=== PATIENT | male | born 1955 | race Caucasian/White ===

== ENCOUNTER 2016-06-10 10:44 | Emergency (ER) | payer MEDICARE, BC ==
--- NOTE | 2016-06-10 11:49 | EDM.PDOC ---
ED HPI GI/ABDOMINAL - General Chief Complaint: Abdominal Pain Stated Complaint: ABDOMINAL PAIN Time Seen by Provider: 06/10/16 11:42 Source: Reports: Patient, Family History Limitations: Reports: No limitations - History of Present Illness INITIAL COMMENTS - FREE TEXT/NARRATIVE: pt arrived with pain in the upper abdoman. He states this started about 10 thirty last nite. He has not vomited. He had a bm in last few hours. Timing/Duration: Reports: Hour(s): Location: RUQ Associated Symptoms: Reports: back pain - Related Data Allergies/ADRs: Allergies Allergy/AdvReac Type Severity Reaction Status Date / Time Cephalosporins Allergy Itching Verified 07/17/15 20:02 Penicillins Allergy Dizziness Verified 07/17/15 20:02 Sulfa (Sulfonamide Allergy Itching Verified 07/17/15 20:02 Antibiotics) vancomycin Allergy Facial Verified 07/17/15 20:02 Swelling Home Meds: Home Meds Calcium Polycarbophil [Fibercon] 1 tab PO QAM 03/04/13 [History] Carvedilol 3.125 mg PO BID 03/04/13 [History] Cranberry Conc/Ascorbic Acid [Cranberry 12,600 mg Softgel] 1 tab PO QAM [History] Furosemide 40 mg PO QAM 03/04/13 [History] Losartan Potassium 25 mg PO QPM 03/04/13 [History] Multivitamin with Minerals [Multiple Vitamin] 1 tab PO QAM 03/04/13 [History] Simvastatin 40 mg PO BEDTIME 03/04/13 [History] Vit D3/Folic Acid/B2/B6/B12 [Folgard Tablet] 1 each PO QAM 03/04/13 [History] Warfarin [Coumadin] 2.5 mg PO ASDIRECTED 03/04/13 [History] Warfarin [Coumadin] 3.75 mg PO ASDIRECTED 03/04/13 [History] metFORMIN [Glucophage] 1,000 mg PO BID 03/04/13 [History] Fluticasone Propionate [Flonase] 1 spray NS BID 04/07/13 [History] Insulin Aspart [NovoLOG] 12 - 15 unit SQ QID 01/11/15 [History] Insulin Detemir [Levemir] 30 unit SQ BID 01/11/15 [History] diphenhydrAMINE [Benadryl] 50 mg PO QID PRN 01/11/15 [History] Gabapentin [Neurontin] 600 mg PO BID 02/10/15 [History] traZODone 200 mg PO BEDTIME 06/27/15 [History] Clopidogrel [Plavix] 75 mg PO DAILY 08/10/15 [History] Potassium 99 mg PO DAILY 06/10/16 [History] Melatonin 6 mg PO BEDTIME 06/11/16 [History] Past Medical History HEENT History: Reports: Sinusitis Cardiovascular History: Reports: Bypass, Heart valve replacement, High cholesterol, Hypertension, [place] Gastrointestinal History: Reports: Cholelithiasis Genitourinary History: Reports: Renal calculus Endocrine/Metabolic History: Reports: Diabetes, type II Other Dermatologic History: infected bug bites - Past Surgical History Cardiovascular Surgical History: Reports: Coronary artery bypass, Valve replacement Respiratory Surgical History: Reports: Lung Resection, Thoracotomy GI Surgical History: Reports: Appendectomy Musculoskeletal Surgical History: Reports: Shoulder surgery Social & Family History - Tobacco Use Smoking Status *Q: Never Smoker Second Hand Smoke Exposure: No - Caffeine Use Caffeine Use: Reports: Coffee - Alcohol Use Days Per Week of Alcohol Use: 0 - Recreational Drug Use Recreational Drug Use: No ED ROS GENERAL - Review of Systems Review Of Systems: See Below Constitutional: Reports: no symptoms HEENT: Reports: No symptoms Respiratory: Reports: no symptoms Cardiovascular: Reports: No symptoms Endocrine: Reports: no symptoms GI/Abdominal: Reports: Abdominal pain, Nausea Musculoskeletal: Reports: no symptoms Skin: Reports: no symptoms Neurological: Reports: no symptoms Psychiatric: Reports: No symptoms ED EXAM, GI/ABD - Physical Exam Exam: See Below Text/Narrative:: pt has had upper abdomanal pain starting about ten thirty last nite. He continues to be uncomfortable and is rating his pain at a 7. Exam Limited By: No limitations General Appearance: alert, mild distress Ears: normal TMs Nose: normal inspection Throat/Mouth: Normal inspection Head: atraumatic Neck: normal inspection Respiratory/Chest: no respiratory distress GI/Abdominal: other (pt is tender in the rt upper and epigastric area. ) (Male) Exam: Deferred Rectal (Males) Exam: Deferred Back Exam: normal inspection Extremities: normal inspection Neurological: alert, oriented, normal cognition Psychiatric: normal affect Course - Vital Signs Last Recorded V/S: Last Vital Signs Temp 36.6 C 03/08/17 11:15 Pulse 90 06/10/16 16:22 Resp 16 06/10/16 16:22 BP 153/85 H 06/10/16 16:22 Pulse Ox 87 L 06/10/16 16:22 - Orders/Labs/Meds Labs: Laboratory Tests 06/10/16 06/10/16 06/10/16 Range/Units 11:28 11:28 11:28 WBC 12.3 H (4.5-11.0) K/uL RBC 5.70 (4.30-5.90) M/uL Hgb 16.0 H (12.0-15.0) g/dL Hct 48.8 (40.0-54.0) % MCV 86 (80-98) fL MCH 28 (27-31) pg MCHC 33 (32-36) % Plt Count 186 (150-400) K/uL Neut % (Auto) 83 H (36-66) % Lymph % (Auto) 10 L (24-44) % [place] % (Auto) 8 H (2-6) % Eos % (Auto) 0 L (2-4) % Baso % (Auto) 0 (0-1) % PT (9.5-12.0) sec INR (0.80-1.20) Sodium 140 (140-148) mmol/L Potassium 4.9 (3.6-5.2) mmol/L Chloride 98 L (100-108) mmol/L Carbon Dioxide 34 H (21-32) mmol/L Anion Gap 12.9 (5.0-14.0) mmol/L BUN 20 H (7-18) mg/dL Creatinine 1.1 (0.8-1.3) mg/dL Est Cr Clr Drug Dosing 65.10 mL/min Estimated GFR (MDRD) > 60 (>60) Glucose 147 H (74-106) mg/dL Calcium 9.5 (8.5-10.1) mg/dL Total Bilirubin 1.1 H D (0.2-1.0) mg/dL AST 21 (15-37) U/L ALT 19 (12-78) U/L Alkaline Phosphatase 52 (46-116) U/L C-Reactive Protein (0.0-0.3) mg/dL Total Protein 8.5 H (6.4-8.2) g/dL Albumin 4.5 (3.4-5.0) g/dL Globulin 4.0 H (2.3-3.5) g/dL Albumin/Globulin Ratio 1.1 L (1.2-2.2) Lipase 64 L (73-393) U/L Urine Color Urine Appearance Urine pH (4.5-8.0) Ur Specific [place] (1.008-1.030) Urine Protein (NEGATIVE) mg/dL Urine Glucose (UA) (NEGATIVE) mg/dL Urine Ketones (NEGATIVE) mg/dL Urine Occult Blood (NEGATIVE) Urine Nitrite (NEGAITVE) Urine Bilirubin (NEGATIVE) Urine Urobilinogen (NORMAL) mg/dL Ur Leukocyte Esterase (NEGATIVE) Urine RBC (0-5) Urine WBC (0-5) Ur Epithelial Cells Amorphous Sediment Urine Bacteria Urine Mucus 06/10/16 06/10/16 06/10/16 Range/Units 11:28 11:28 11:33 WBC (4.5-11.0) K/uL RBC (4.30-5.90) M/uL Hgb (12.0-15.0) g/dL Hct (40.0-54.0) % MCV (80-98) fL MCH (27-31) pg MCHC (32-36) % Plt Count (150-400) K/uL Neut % (Auto) (36-66) % Lymph % (Auto) (24-44) % [place] % (Auto) (2-6) % Eos % (Auto) (2-4) % Baso % (Auto) (0-1) % PT 36.5 H (9.5-12.0) sec INR 3.32 H (0.80-1.20) Sodium (140-148) mmol/L Potassium (3.6-5.2) mmol/L Chloride (100-108) mmol/L Carbon Dioxide (21-32) mmol/L Anion Gap (5.0-14.0) mmol/L BUN (7-18) mg/dL Creatinine (0.8-1.3) mg/dL Est Cr Clr Drug Dosing mL/min Estimated GFR (MDRD) (>60) Glucose (74-106) mg/dL Calcium (8.5-10.1) mg/dL Total Bilirubin (0.2-1.0) mg/dL AST (15-37) U/L ALT (12-78) U/L Alkaline Phosphatase (46-116) U/L C-Reactive Protein 0.61 H (0.0-0.3) mg/dL Total Protein (6.4-8.2) g/dL Albumin (3.4-5.0) g/dL Globulin (2.3-3.5) g/dL Albumin/Globulin Ratio (1.2-2.2) Lipase (73-393) U/L Urine Color Yellow Urine Appearance Slightly cloudy Urine pH 5.0 (4.5-8.0) Ur Specific [place] 1.020 (1.008-1.030) Urine Protein Negative (NEGATIVE) mg/dL Urine Glucose (UA) Normal (NEGATIVE) mg/dL Urine Ketones Negative (NEGATIVE) mg/dL Urine Occult Blood Trace (NEGATIVE) Urine Nitrite Negative (NEGAITVE) Urine Bilirubin Small (NEGATIVE) Urine Urobilinogen 4 (NORMAL) mg/dL Ur Leukocyte Esterase Negative (NEGATIVE) Urine RBC 0-5 (0-5) Urine WBC Not seen (0-5) Ur Epithelial Cells Rare Amorphous Sediment Moderate Urine Bacteria Rare Urine Mucus Moderate Meds: Medications Discontinued Medications Generic Name Dose Route Start Last Admin Trade Name Freq PRN Reason Stop Dose Admin Sodium Chloride 1,000 mls @ 999 mls/hr 06/10/16 12:15 06/10/16 13:28 Normal Saline IV 999 mls/hr ASDIRECTED [facility] Administration Sodium Chloride 85 mls @ 3.5 mls/sec 06/10/16 13:15 06/10/16 13:49 Normal Saline IV 3.5 mls/sec ASDIRECTED [facility] Administration Iopamidol 150 ml 06/10/16 13:08 06/10/16 13:49 Isovue-300 (61%) IV 06/11/16 13:09 150 ml . DIRECTED PRN Administration RADIOLOGY EXAM Ketorolac Tromethamine 30 mg 06/10/16 15:16 06/10/16 15:20 Toradol IVPUSH 06/10/16 15:17 30 mg ONETIME ONE Administration Magnesium Citrate 296 ml 06/10/16 14:10 06/10/16 15:05 Citrate Of Magnesia PO 06/10/16 14:11 296 ml ONETIME ONE Administration Ondansetron HCl 4 mg 06/10/16 12:05 06/10/16 13:27 Zofran IVPUSH 06/10/16 12:06 4 mg ONETIME ONE Administration Sodium Chloride 10 ml 06/10/16 13:08 06/10/16 13:47 Saline Flush FLUSH 10 ml ONETIME PRN Administration per radiology protocol - Re-Assessments/Exams Free Text/Narrative Re-Assessment/Exam: 06/10/16 14:11 pt had a cat scan which shows constipation but no other issues. His lab work is normal 06/10/16 16:54 Pt had a tap water enemea. He had a US of his Gb which showed a thickened gb wall some sludge. He will have a hiada scan and then an appt with Dr Multani in consult. Departure - Departure Time of Disposition: 16:55 Disposition: Home, Self-Care 01 Condition: fair Clinical Impression: Constipation, Abdominal pain Instructions: Constipation, Adult, [id number], Abdominal Pain, Adult, Easy-to -Read Referrals: Nilay Patel Sr, MD [Primary Care Provider] - Forms: ED Department Discharge Care Plan Goals: rtc for a Hiada scan,push fluids, Increase fibercon to bid and eat prunes daily mid day, Appt with Dr Multani after the Hiada scn.
[2016-06-10] MEDS ORDERED: Ondansetron 4 MG/2 ML SDV IVPUSH ONE (12:05)
[2016-06-10] MEDS ORDERED: Sodium Chloride 0.9% 1,000 ML IV SCH (12:15)
[2016-06-10] MEDS ORDERED: Iopamidol 612 MG/ML 150 ML Bottle IV PRN (13:08)
[2016-06-10] MEDS ORDERED: Sodium Chloride 0.9% 10 ML Syringe FLUSH PRN (13:08)
--- NOTE | 2016-06-10 13:24 | CR ---
Acute abdomen series Comparison: October 2012. Findings: The heart and vascular structures are stable. There is chronic scarring in the left lung b ase. Chronic bilateral pleural thickening peripherally. There are no acute infiltrates. There is a large amount of stool throughout the colon. There are no pathologic air-fluid levels. The re is no large or small bowel distention. Impression: 1. Large amount of colonic stool. Correlate for possible constipation. 2. Chronic changes of the lungs.
[2016-06-10] MEDS ORDERED: Magnesium Citrate Solution 296 ML Bottle PO ONE (14:10)
--- NOTE | 2016-06-10 14:11 | CT ---
Abdomen pelvis CT. History: Upper abdominal pain. Technique: IV contrast was administered followed by axial imaging from the lung bases extending thro ugh the abdomen and pelvis. Coronal images were reconstructed. Total DLP: 1238. Comparison: June 2015. Findings: Limited evaluation of the lower lung guaman demonstrates chronic pleural thickening. There is chronic basilar fibrosis as well as pleural calcifications. The liver is unremarkable. There are multiple small stones within the gallbladder. There has been de velopment of gallbladder wall thickening as well as induration of the adjacent fat consistent with i nflammation. There is mild pericholecystic fluid. There appears to be a stone in the neck of the gal lbladder. There is no biliary ductal dilatation. The pancreas is unremarkable. The spleen is normal in size. The kidneys demonstrate symmetric excretion of contrast. There is no large or small bowel d istention. There is no wall thickening or evidence for inflammation. There are scattered colonic div erticula. There is no free air. Impression: 1. Cholelithiasis. Gallbladder wall thickening with mild pericholecystic fluid and induration of the fat. The findings are consistent with acute cholecystitis. Ultrasound could provide additional info rmation. 2. The remaining portions of the exam are unchanged.
[2016-06-10] MEDS ORDERED: Ketorolac 30 MG/ML SDV IVPUSH ONE (15:16)
[2016-06-10 16:29] VITALS: BP 153/85
--- NOTE | 2016-06-11 10:39 | US ---
Gallbladder ultrasound Correlation is made with a CT exam obtained earlier same day. Findings: Gallstones seen on the prior CT examinations are not visualized under ultrasound. A small gallbladder wall polyp is demonstrated. There is gallbladder wall thickening. The wall measures 6 mm . There is a small amount of pericholecystic fluid. The patient denies pain with palpation over the gallbladder. Impression: 1. Limited study demonstrating mild gallbladder wall thickening and pericholecystic fluid. Stones se en on CT were not demonstrated under ultrasound. The exam is equivocal for cholecystitis.
== END 2016-06-10 17:34 | disposition home or self-care (01) ==
LOC: JP.ED 10:44
DX: K59.00 Constipation, unspecified (principal); E78.00 Pure hypercholesterolemia, unspecified; I10 Essential (primary) hypertension; I25.2 Old myocardial infarction; E11.9 Type 2 diabetes mellitus without complications; Z79.4 Long term (current) use of insulin; Z79.01 Long term (current) use of anticoagulants; Z79.899 Other long term (current) drug therapy; Z95.1 Presence of aortocoronary bypass graft; Z90.49 Acquired absence of other specified parts of digestive tract; Z88.0 Allergy status to penicillin; Z88.1 Allergy status to other antibiotic agents; Z88.2 Allergy status to sulfonamides
CPT/HCPCS: 36415; 74022; 74177; 76705; 80053; 81001; 82272; 83690; 85025; 85610; 86140; 96361; 96374; 96375; 99284; A9270; J1885; J2405; J7030; J7040; J7050

== ENCOUNTER 2016-06-11 13:10 | Inpatient (IN) | payer MEDICARE, BC ==
[2016-06-11] MEDS ORDERED: Phytonadione 10 MG in Sodium Chloride 0.9% 50 ML IV ONE (14:45)
[2016-06-11] MEDS: Dextrose 5%-Lactated Ringers 1,000 ML IV SCH (14:52)
[2016-06-11] MEDS ORDERED: diphenhydrAMINE 25 MG Cap PO PRN (16:01)
[2016-06-11] MEDS ORDERED: Non-Formulary Medication 1 Each (Fluticasone Propionate [Flovent] 2 PUFF) IH PRN (16:01)
[2016-06-11] MEDS ORDERED: Acetaminophen 325 MG Tab PO PRN (16:06)
[2016-06-11] MEDS ORDERED: Naloxone 0.4 MG/ML SDV IV PRN (16:21)
--- NOTE | 2016-06-11 16:21 | PCM.HP ---
H&P History of Present Illness - General Date of Service: 06/11/16 Source of Information: Patient History Limitations: Reports: No limitations - History of Present Illness Initial Comments - Free Text/Narative: Sudden onset of right upper quadrant abdominal pain that radiates throughout his entire abdomen. Has had this before so states he was sure it was his gallbladder. He had similar abdominal pain several months ago. Pain is associated with bloating, nausea and constipation. Last BM was last night in ED after an enema - he states. Eldon had a positive HIDA Scan and was admitted to [facility]. Duration of Symptoms: Reports: Day(s): (2) Location: Reports: abdomen (right upper quadrant ) Quality: Reports: Ache, Pressure, Same as previous episode Severity: mild Improves with: Reports: None Worsens with: Reports: Eating Associated Symptoms: Reports: fever/chills (last night of 100.9 but no fever today.), loss of appetite Other HPI/Comments: Nausea and constipation as stated above. - Related Data Allergies/Adverse Reactions: Allergies Allergy/AdvReac Type Severity Reaction Status Date / Time Cephalosporins Allergy Itching Verified 07/17/15 20:02 Penicillins Allergy Dizziness Verified 07/17/15 20:02 Sulfa (Sulfonamide Allergy Itching Verified 07/17/15 20:02 Antibiotics) vancomycin Allergy Facial Verified 07/17/15 20:02 Swelling Home Medications: Home Meds Calcium Polycarbophil [Fibercon] 1 tab PO QAM 03/04/13 [History] Carvedilol 3.125 mg PO BID 03/04/13 [History] Cranberry Conc/Ascorbic Acid [Cranberry 12,600 mg Softgel] 1 tab PO QAM [History] Fluticasone Propionate [Flovent] 2 puff IH ASDIRECTED PRN 03/04/13 [History] Furosemide 40 mg PO QAM 03/04/13 [History] Losartan Potassium 25 mg PO QPM 03/04/13 [History] Multivitamin with Minerals [Multiple Vitamin] 1 tab PO QAM 03/04/13 [History] Simvastatin 40 mg PO BEDTIME 03/04/13 [History] Vit D3/Folic Acid/B2/B6/B12 [Folgard Tablet] 1 each PO QAM 03/04/13 [History] Warfarin [Coumadin] 2.5 mg PO ASDIRECTED 03/04/13 [History] Warfarin [Coumadin] 3.75 mg PO ASDIRECTED 03/04/13 [History] metFORMIN [Glucophage] 1,000 mg PO BID 03/04/13 [History] Fluticasone Propionate [Flonase] 1 spray NS BID 04/07/13 [History] Insulin Aspart [NovoLOG] 12 - 15 unit SQ QID 01/11/15 [History] Insulin Detemir [Levemir] 30 unit SQ BID 01/11/15 [History] diphenhydrAMINE [Benadryl] 50 mg PO QID PRN 01/11/15 [History] Gabapentin [Neurontin] 600 mg PO BID 02/10/15 [History] traZODone 200 mg PO BEDTIME 06/27/15 [History] Clopidogrel [Plavix] 75 mg PO DAILY 08/10/15 [History] Potassium 99 mg PO DAILY 06/10/16 [History] Melatonin 6 mg PO BEDTIME 06/11/16 [History] Past Medical History HEENT History: Reports: Sinusitis Cardiovascular History: Reports: Bypass, Heart valve replacement, High cholesterol, Hypertension, [place] Gastrointestinal History: Reports: Cholelithiasis Genitourinary History: Reports: Renal calculus Endocrine/Metabolic History: Reports: Diabetes, type II Other Dermatologic History: infected bug bites - Past Surgical History Cardiovascular Surgical History: Reports: Coronary artery bypass, Valve replacement Respiratory Surgical History: Reports: Lung Resection, Thoracotomy GI Surgical History: Reports: Appendectomy Musculoskeletal Surgical History: Reports: Shoulder surgery Social & Family History - Tobacco Use Smoking Status *Q: Never Smoker Second Hand Smoke Exposure: No - Caffeine Use Caffeine Use: Reports: Coffee - Alcohol Use Days Per Week of Alcohol Use: 0 - Recreational Drug Use Recreational Drug Use: No H&P Review of Systems - Review of Systems: Review Of Systems: See Below General: Reports: fatigue, decreased appetite HEENT: Reports: no symptoms Pulmonary: Reports: no symptoms Cardiovascular: Reports: no symptoms Gastrointestinal: Reports: Abdominal pain (as stated in CC) Genitourinary: Reports: no symptoms Musculoskeletal: Reports: no symptoms Skin: Reports: no symptoms Psychiatric: Reports: no symptoms Neurological: Reports: no symptoms Hematologic/Lymphatic: Reports: no symptoms Immunologic: Reports: no symptoms Exam - Exam Exam: See Below - Vital Signs Vital Signs: Last Vital Signs Temp 99.2 F 06/11/16 13:32 Pulse 80 06/11/16 13:32 Resp 17 06/11/16 13:32 BP 111/72 06/11/16 13:32 Pulse Ox 93 L 06/11/16 13:32 Weight: 133 lb 3.2 oz - Exam Quality Assessment: DVT prophylaxis General: alert, oriented, cooperative, mild distress HEENT: PERRLA Neck: supple, trachea midline, full range of motion Lungs: Clear to auscultation, Normal respiratory effort Cardiovascular: regular rate, regular rhythm Abdomen: distention, guarding, tenderness (right upper quadrant) (Male) Exam: Deferred Rectal (Males) Exam: Deferred Back Exam: normal inspection, full range of motion Extremities: normal inspection, edema (minimal peripheral edema right > left) Skin: warm, dry, intact Neurological: cranial nerves intact, reflexes equal bilateral, normal speech Neuro Extensive - Mental Status: alert, oriented x3, normal mood/affect, normal cognition, memory intact Neuro Extensive - Motor, Sensory, Reflexes: CN II-XII intact, normal gait Psychiatric: alert, normal affect, normal mood *Q Meaningful Use (ADM) - VTE *Q VTE Criteria *Q: - Stroke *Q Stroke Criteria *Q: - AMI *Q AMI Criteria *Q: Problem List Initiated/Reviewed/Updated: Yes Orders Last 24hrs: Active Orders 24 hr Category Date Time Status Accu Check [Blood Glucose Check, Bedside] [] Care 06/11/16 16:00 Active QIDACANDBED Communication Order [] ROUTINE Care 06/11/16 15:58 Ordered Incentive Breathing [RT Incentive Spirometry] [] Care 06/11/16 15:56 Ordered ASDIRECTED Intake and Output [] ASDIRECTED Care 06/11/16 16:01 Ordered Verify Patient Consent Obtain [] ASDIRECTED Care 06/11/16 16:14 Ordered Full Liquid Diet [DIET] Diet 06/11/16 Dinner Ordered NPO After Midnight [Nothing per Oral After Midnight Diet 06/11/16 Dinner Ordered Diet] [DIET] CBC W/O DIFF,HEMOGRAM [HEME] Timed Lab 06/12/16 04:00 Ordered COMPREHENSIVE METABOLIC PN,CMP [CHEM] Timed Lab 06/12/16 04:00 Ordered INR,PT,PROTHROMBIN TIME [COAG] Routine Lab 06/11/16 21:15 Ordered MAGNESIUM [CHEM] Timed Lab 06/12/16 04:00 Ordered PHOSPHORUS [CHEM] Timed Lab 06/12/16 04:00 Ordered PRO B-TYPE NATRIUR PEPT,BNPPRO [CHEM] Timed Lab 06/12/16 04:00 Ordered Acetaminophen [Tylenol] Med 06/11/16 16:06 Ordered 650 mg PO Q4H PRN Carvedilol [Coreg] Med 06/11/16 21:00 Ordered 3.125 mg PO BID Dextrose 5%-Lactated Ringers 1,000 ml Med 06/11/16 14:30 Active IV ASDIRECTED Fluticasone Propionate [Flonase] Med 06/11/16 21:00 Ordered 1 spray NASBOTH BID Fluticasone Propionate [Flovent] Med 06/11/16 16:01 Ordered 2 puff IH ASDIRECTED PRN Furosemide [Lasix] Med 06/12/16 09:00 Ordered 40 mg PO QAM Gabapentin [Neurontin] Med 06/11/16 21:00 Ordered 600 mg PO BID Insulin Aspart [NovoLOG] Med 06/11/16 22:00 Ordered 12 - 15 unit SUBCUT QID Insulin Detemir [Levemir] Med 06/11/16 21:00 Ordered 30 unit SUBCUT BID Losartan Potassium [Losartan Potassium] Med 06/11/16 17:00 Ordered 25 mg PO QPM Melatonin Med 06/11/16 21:00 Ordered 6 mg PO BEDTIME Meropenem [Merrem] 500 mg Med 06/11/16 16:00 Ordered Sodium Chloride 0.9% [Normal Saline] 50 ml IV Q6H Pantoprazole [Protonix IV] Med 06/11/16 16:00 Ordered 40 mg IVPUSH Q24H Potassium [Potassium] Med 06/12/16 09:00 Ordered 99 mg PO DAILY Simvastatin [Simvastatin] Med 06/11/16 21:00 Ordered 40 mg PO BEDTIME diphenhydrAMINE [Benadryl] Med 06/11/16 16:01 Ordered 50 mg PO QID PRN metFORMIN [Glucophage] Med 06/11/16 21:00 Ordered 1,000 mg PO BID traZODone [traZODone] Med 06/11/16 21:00 Ordered 200 mg PO BEDTIME SCD [Sequential Compression Device] [OM.PC] Routine Oth 06/11/16 15:55 Ordered Medication Orders Acetaminophen (Tylenol) 650 mg PO Q4H PRN PRN Reason: Pain Carvedilol (Coreg) 3.125 mg PO BID [facility] Diphenhydramine HCl (Benadryl) 50 mg PO QID PRN PRN Reason: Itching Fluticasone Propionate (Flonase) gm NASBOTH BID [facility] Furosemide (Lasix) 40 mg PO QAM [facility] Gabapentin (Neurontin) 600 mg PO BID [facility] Dextrose/Lactated Ringer's (Dextrose 5%-Lactated Ringers) 1,000 mls @ 100 mls/ hr IV ASDIRECTED [facility] Last Admin: 06/11/16 14:52 Dose: 100 mls/hr Meropenem 500 mg/ Sodium (Chloride) 50 mls @ 100 mls/hr IV Q6H [facility] Insulin Aspart (Novolog) 12 - 15 unit SUBCUT QID [facility] Insulin Detemir (Levemir) 30 unit SUBCUT BID [facility] Losartan Potassium (Cozaar) 25 mg PO QPM [facility] Melatonin (Melatonin) 6 mg PO BEDTIME [facility] Metformin HCl (Glucophage) 1,000 mg PO BIDMEALS [facility] Non-Formulary Medication (Fluticasone Propionate [Flovent]) 2 puff IH ASDIRECTED PRN PRN Reason: Shortness of Breath Non-Formulary Medication (Potassium [Potassium]) 99 mg PO DAILY [facility] Non-Formulary Medication (Trazodone [Trazodone]) 200 mg PO BEDTIME [facility] Pantoprazole Sodium (Protonix Iv) 40 mg IVPUSH Q24H [facility] Simvastatin (Zocor) 40 mg PO BEDTIME [facility] Assessment/Plan Comment:: Biliary Dyskinisia Acute Cholecystitis Plan: Admit as Inpatient - 2 nights and 3 days Scheduled Laparoscopic Cholecystectomy possible Laparotomy - General Anesthesia - Benja Multani MD - Wednesday, [id number] NPO after MN See Copy of Orders in EMR Lilian Kerr
[2016-06-11] MEDS: Meperidine 300 MG/30 ML PCA Vial IV PRN (17:11)
[2016-06-11] MEDS: Pantoprazole 40 MG Vial IVPUSH SCH (17:14)
[2016-06-11] MEDS: Meropenem 500 MG in Sodium Chloride 0.9% 50 ML IV SCH ×2 (17:21→23:38)
[2016-06-11] MEDS: metFORMIN 500 MG Tab PO SCH (17:22)
[2016-06-11] MEDS: Losartan 50 MG Tab PO SCH (17:27)
[2016-06-11] MEDS: Insulin Aspart 100 Units/ML 3 ML Pen SUBCUT SCH ×2 (17:58→21:09)
[2016-06-11] MEDS: Fluticasone Propionate Nasal Spray 16 GM Bottle NASBOTH SCH (21:00)
[2016-06-11] MEDS: Carvedilol 3.125 MG Tab PO SCH (21:00)
[2016-06-11] MEDS: Melatonin 3 MG Tab PO SCH (21:01)
[2016-06-11] MEDS: traZODone 50 MG Tab PO SCH (21:01)
[2016-06-11] MEDS: Gabapentin 300 MG Cap PO SCH (21:01)
[2016-06-11] MEDS: Simvastatin 20 MG Tab PO SCH (21:04)
[2016-06-11] MEDS: Insulin Detemir 100 Units/ML 3 ML Pen SUBCUT SCH (21:10)
[2016-06-11] MEDS ORDERED: Phytonadione 5 MG in Sodium Chloride 0.9% 50 ML IV ONE (21:56)
[2016-06-12] MEDS: Dextrose 5%-Lactated Ringers 1,000 ML IV SCH ×3 (03:13→16:49)
[2016-06-12] MEDS: Meropenem 500 MG in Sodium Chloride 0.9% 50 ML IV SCH ×4 (05:48→23:02)
[2016-06-12] MEDS: Potassium Chloride 10 MEQ Cap.ER PO SCH (07:36)
[2016-06-12] MEDS: Carvedilol 3.125 MG Tab PO SCH ×3 (07:37→21:37)
[2016-06-12] MEDS: metFORMIN 500 MG Tab PO SCH ×2 (07:37→16:47)
[2016-06-12] MEDS: Furosemide 40 MG Tab PO SCH ×2 (07:40→10:05)
[2016-06-12] MEDS: Gabapentin 300 MG Cap PO SCH ×3 (07:40→21:38)
[2016-06-12] MEDS: Fluticasone Propionate Nasal Spray 16 GM Bottle NASBOTH SCH ×2 (08:30→21:35)
[2016-06-12] MEDS ORDERED: Bupivacaine 0.5%/EPINEPHrine 1:200,000 50 ML MDV ONE (09:27)
[2016-06-12] MEDS: Insulin Aspart 100 Units/ML 3 ML Pen SUBCUT SCH ×4 (10:04→22:57)
[2016-06-12] MEDS ORDERED: Ondansetron 4 MG/2 ML SDV IVPUSH ONE (10:30)
[2016-06-12] MEDS: Insulin Detemir 100 Units/ML 3 ML Pen SUBCUT SCH ×2 (10:31→22:58)
[2016-06-12] MEDS ORDERED: Rocuronium 50 MG/5 ML Vial ONE ×2 (12:05→12:06)
[2016-06-12] MEDS ORDERED: Propofol 200 MG/20 ML SDV ONE ×2 (12:05→12:06)
[2016-06-12] MEDS ORDERED: Ondansetron 4 MG/2 ML SDV ONE ×2 (12:05→12:06)
[2016-06-12] MEDS ORDERED: Dexamethasone 4 MG/ML SDV ONE ×2 (12:05→12:06)
[2016-06-12] MEDS ORDERED: Neostigmine Methylsulfate 1 MG/ML 5 ML Syringe ONE ×2 (12:05→12:06)
[2016-06-12] MEDS ORDERED: fentaNYL 250 MCG/5 ML SDV ONE ×2 (12:06→13:43)
[2016-06-12] MEDS ORDERED: Meropenem 500 MG SDV ONE (13:32)
[2016-06-12] MEDS ORDERED: Lactated Ringers 1,000 ML ONE (14:24)
[2016-06-12] MEDS: fentaNYL 25 MCG/HR Transdermal Patch TRDERM SCH (14:53)
[2016-06-12] MEDS ORDERED: Glucose Gel 15 GM in 37.5 GM Tube PO PRN (15:19)
[2016-06-12] MEDS ORDERED: Glucagon,Human Recombinant 1 MG Vial IM PRN (15:19)
[2016-06-12] MEDS ORDERED: 50% Dextrose in Water 50 ML Syringe IVPUSH PRN (15:19)
[2016-06-12] MEDS ORDERED: Ondansetron 4 MG/2 ML SDV IV PRN (15:27)
[2016-06-12] MEDS: Losartan 50 MG Tab PO SCH (16:48)
[2016-06-12] MEDS: Pantoprazole 40 MG Vial IVPUSH SCH (16:48)
[2016-06-12] MEDS: VERIFY FENT PATCH TOP SCH ×2 (17:01→21:38)
[2016-06-12] MEDS: Melatonin 3 MG Tab PO SCH (21:37)
[2016-06-12] MEDS: traZODone 50 MG Tab PO SCH (21:39)
[2016-06-12] MEDS: Simvastatin 20 MG Tab PO SCH (21:39)
[2016-06-13] MEDS: Dextrose 5%-Lactated Ringers 1,000 ML IV SCH ×3 (01:42→21:10)
[2016-06-13] MEDS ORDERED: Tamsulosin 0.4 MG Cap.ER PO ONE ×2 (02:51→09:00)
[2016-06-13] MEDS: Meperidine 300 MG/30 ML PCA Vial IV PRN (02:58)
[2016-06-13] MEDS ORDERED: Lidocaine 2% Jelly 10 ML Urojet MUCMEM ONE (03:24)
[2016-06-13] MEDS: Insulin Aspart 100 Units/ML 3 ML Pen SUBCUT SCH ×3 (05:42→13:46)
[2016-06-13] MEDS: Meropenem 500 MG in Sodium Chloride 0.9% 50 ML IV SCH ×4 (05:45→22:56)
[2016-06-13] MEDS ORDERED: Meropenem 500 MG SDV ONE (06:21)
[2016-06-13] MEDS ORDERED: Bupivacaine 0.5% 50 ML MDV ONE (06:22)
[2016-06-13] MEDS ORDERED: Lidocaine 1% with EPINEPHrine 1:100,000 50 ML MDV ONE (06:22)
[2016-06-13] MEDS: Carvedilol 3.125 MG Tab PO SCH ×2 (08:24→21:01)
[2016-06-13] MEDS: Insulin Detemir 100 Units/ML 3 ML Pen SUBCUT SCH ×2 (08:31→21:03)
[2016-06-13] MEDS ORDERED: Propofol 200 MG/20 ML SDV ONE (08:56)
[2016-06-13] MEDS ORDERED: Midazolam 1 MG/ML 2 ML SDV ONE (08:56)
[2016-06-13] MEDS ORDERED: fentaNYL 100 MCG/2 ML SDV ONE (08:56)
[2016-06-13] MEDS: metFORMIN 500 MG Tab PO SCH ×2 (09:16→17:03)
[2016-06-13] MEDS: Potassium Chloride 10 MEQ Cap.ER PO SCH ×2 (09:17→17:17)
[2016-06-13] MEDS: VERIFY FENT PATCH TOP SCH (09:18)
[2016-06-13] MEDS ORDERED: Lactated Ringers 1,000 ML ONE (09:49)
--- NOTE | 2016-06-13 10:04 | PN ---
DATE OF SERVICE: 06/13/2016 SUBJECTIVE: Eldon had a laparotomy and cholecystectomy yesterday. Temp max 99.9, his O2 does go between 70% to 80% on room air with oxygen in the 90s he will be having delayed primary closure today, will remain n.p.o., and had urinary retention. Craig catheter was put back in, and he had an 800 mL urine immediate return. Blood sugars have been elevated to 304, 171, 315, and 299. STEPHEN drains have put out 180 and 145 of a light red drainage respectively. REVIEW OF SYSTEMS: Remainder of review of systems negative for any pertinent positives and negatives. OBJECTIVE: GENERAL: Eldon Mast is a 60-year-old male. He is sitting up in the chair. Alert and orientated. Color pale. SKIN: Warm and dry. VITAL SIGNS: TPR is 98.1, 67, 16, and blood pressure 113/66. HEENT: Negative. NECK: Supple. HEART: Regular rate and rhythm. LUNGS: Clear. ABDOMEN: Dressings are dry and intact. Abdominal binder is on. EXTREMITIES: Without peripheral edema. ASSESSMENT: Laparoscopy to laparotomy, cholecystectomy, drainage of pericholecystic abscess for hemorrhagic acute cholecystitis, cholelithiasis with extensive fibroid to lowest cystic hepatic triangle in pericholecystic abscess on 06/12/2016. PLAN: Remain n.p.o. for delayed primary closure. Orders to be written postoperatively. Continue good pulmonary toilet. Lilian Martin PA-C /[id number]
[2016-06-13] MEDS: Flumazenil 0.1 MG/ML 5 ML MDV ONE ×2 (10:33→11:52)
[2016-06-13] MEDS ORDERED: Naloxone 0.4 MG/ML SDV ONE (10:36)
[2016-06-13] MEDS: Furosemide 40 MG Tab PO SCH (11:57)
[2016-06-13] MEDS: Fluticasone Propionate Nasal Spray 16 GM Bottle NASBOTH SCH ×2 (11:57→21:01)
[2016-06-13] MEDS: Gabapentin 300 MG Cap PO SCH ×2 (11:57→20:59)
[2016-06-13] MEDS: Bisacodyl 5 MG Tab PO SCH ×2 (12:00→21:02)
[2016-06-13] MEDS ORDERED: Warfarin 5 MG Tab PO ONE (13:00)
[2016-06-13] MEDS: Enoxaparin 40 MG/0.4 ML Syringe SUBCUT SCH (13:57)
[2016-06-13] MEDS: Insulin Aspart 100 Units/ML 3 ML Pen SUBCUT PRN ×3 (14:22→21:05)
[2016-06-13] MEDS: Calcium Polycarbophil 625 MG Tab PO SCH (17:03)
[2016-06-13] MEDS: Pantoprazole 40 MG Tab.CR PO SCH (17:03)
--- NOTE | 2016-06-13 19:31 | OR ---
DATE OF PROCEDURE: 06/13/2016 PREOPERATIVE DIAGNOSIS: Open abdominal incision. POSTOPERATIVE DIAGNOSIS: Open abdominal incision. PROCEDURE: Delayed primary closure of open abdominal incision. ANESTHESIA: IV sedation. INDICATION FOR PROCEDURE: The patient is status post open laparotomy for history of an infected gallbladder. At the time of the procedure, the skin and subcutaneous tissues were left open to minimize chances of wound infection and is undergoing delayed primary closure at this time. Potential risks including bleeding and infection were reviewed, and the patient wishes to proceed. DETAILS OF PROCEDURE: The patient was taken to the operating room, placed in a supine position. IV sedation was administered, after which the abdominal dressing was taken down. The wound was inspected and found to be clean. The incision was then prepped and draped, and anesthetized with 1% lidocaine mixed with Marcaine and then irrigated with meropenem containing saline solution. A 10-Serbian round Jose De Jesus-Armando drain was placed through stab wound lateral to the incision and the incision was then closed with two layers of 3-0 and 4- 0 Vicryl stitch deep and rajiv for the skin. Drains were fixed with some 4-0 Vicryl stitch. Additionally, the patient had a trocar site in the right mid abdomen and this was closed with subdermal stitch of 4-0 Vicryl stitch and rajiv as per the main subcostal incision. The patient was taken to the recovery room in satisfactory condition. There were no other complications. Benja Multani MD /[id number]
[2016-06-13] MEDS: Simvastatin 20 MG Tab PO SCH (20:59)
[2016-06-13] MEDS: traZODone 50 MG Tab PO SCH (21:00)
[2016-06-13] MEDS: Melatonin 3 MG Tab PO SCH (21:01)
[2016-06-13] MEDS: Tamsulosin 0.4 MG Cap.ER PO SCH (21:02)
[2016-06-13] MEDS: Losartan 50 MG Tab PO SCH (21:21)
[2016-06-14] MEDS: VERIFY FENT PATCH TOP SCH ×3 (01:38→21:45)
[2016-06-14] MEDS: Enoxaparin 40 MG/0.4 ML Syringe SUBCUT SCH ×2 (01:38→13:27)
[2016-06-14] MEDS: Meropenem 500 MG in Sodium Chloride 0.9% 50 ML IV SCH ×4 (05:07→23:08)
[2016-06-14] MEDS: Furosemide 40 MG Tab PO SCH (08:02)
[2016-06-14] MEDS ORDERED: HYDROmorphone 2 MG Tab PO PRN (08:02)
[2016-06-14] MEDS: Clopidogrel 75 MG Tab PO SCH (08:03)
[2016-06-14] MEDS: metFORMIN 500 MG Tab PO SCH ×2 (08:03→17:22)
[2016-06-14] MEDS: Gabapentin 300 MG Cap PO SCH ×2 (08:03→21:44)
[2016-06-14] MEDS: Carvedilol 3.125 MG Tab PO SCH ×2 (08:04→21:42)
[2016-06-14] MEDS: Fluticasone Propionate Nasal Spray 16 GM Bottle NASBOTH SCH ×2 (08:04→21:38)
[2016-06-14] MEDS: Bisacodyl 5 MG Tab PO SCH ×2 (08:04→21:41)
[2016-06-14] MEDS: Potassium Chloride 10 MEQ Cap.ER PO SCH (08:05)
[2016-06-14] MEDS: Insulin Detemir 100 Units/ML 3 ML Pen SUBCUT SCH ×2 (08:11→21:40)
[2016-06-14] MEDS: Insulin Aspart 100 Units/ML 3 ML Pen SUBCUT PRN ×4 (08:12→21:35)
[2016-06-14] MEDS ORDERED: Warfarin 2.5 MG Tab PO SCH ×3 (08:15→13:00)
[2016-06-14] MEDS: CRANBERRY 12600 MG PO SCH (09:47)
[2016-06-14] MEDS: Calcium Polycarbophil 625 MG Tab PO SCH (10:22)
[2016-06-14] MEDS: Pantoprazole 40 MG Tab.CR PO SCH (17:21)
[2016-06-14] MEDS: Losartan 50 MG Tab PO SCH (17:21)
[2016-06-14] MEDS: Melatonin 3 MG Tab PO SCH (21:43)
[2016-06-14] MEDS: Tamsulosin 0.4 MG Cap.ER PO SCH (21:44)
[2016-06-14] MEDS: traZODone 50 MG Tab PO SCH (21:45)
[2016-06-14] MEDS: Simvastatin 20 MG Tab PO SCH (21:48)
[2016-06-15] MEDS: Enoxaparin 40 MG/0.4 ML Syringe SUBCUT SCH ×2 (02:44→15:51)
[2016-06-15] MEDS: Meropenem 500 MG in Sodium Chloride 0.9% 50 ML IV SCH ×4 (05:00→23:56)
--- NOTE | 2016-06-15 08:10 | PN ---
DATE OF SERVICE: 06/15/2016 SUBJECTIVE: Eldon's blood sugar was 166. Pain is controlled with the Galt. STEPHEN drains have put out 40, 30, and 0 respectively. He did have 4 mg of Dilaudid yesterday afternoon and did become somewhat confused, so his pain medication was changed to Galt 5/325 of 1 to 2, and he is tolerating that well. He has been up ambulating. He has been afebrile. Oral intake 3740. His output was 2950. Lab work was reviewed. Potassium is 4.1. Hemoglobin 12.1. PT 11.8 and INR is 1.11. He is very concerned. Last time he had surgery. After his thoracotomy, he had bleeding from his incision. REVIEW OF SYSTEMS: Remainder of review of systems negative for any pertinent positives and negatives. OBJECTIVE: GENERAL: Eldon is a 60-year-old male. He is alert and orientated. Color pale. SKIN: Warm and dry. VITAL SIGNS: TPR is 98, 78, 18, blood pressure 118/70. HEENT: Negative. NECK: Supple. HEART: Regular rate and rhythm. LUNGS: Clear. ABDOMEN: Dressings are dry and intact. Abdominal binder is on. STEPHEN drains x3 intact as above. EXTREMITIES: Reveal trace peripheral edema. ASSESSMENT: 1. Laparoscopic turned to laparotomy for cholecystectomy, drainage of pericholecystic abscess for hemorrhagic acute cholecystitis, cholelithiasis with extensive fibroid to lower cystic hepatic triangle and the pericholecystic abscess on 06/12/2016. 2. Delayed primary closure on 06/13/2016. PLAN: 1. Milk of magnesia 30 mL now followed by Dulcolax 2 tabs p.o. 1 hour after milk of mag. 2. Continue same Coumadin dose. He will be getting 3.75 mg today per his home schedule. 3. Magnesium was low at 1.4. He will get magnesium 2 g IV q.6 hours x72 hours. 4. Good pulmonary toilet encouraged. 5. We will evaluate p.r.n. or in a.m. Lilian Martin PA-C /[id number]
--- NOTE | 2016-06-15 08:27 | PN ---
DATE OF SERVICE: 06/13/2016 The patient has been afebrile with stable vital signs. Alert overnight. He did retain urine and had a Craig catheter put in, 800 mL retained urine noted. Otherwise, blood sugar is a little bit high and we will adjust his insulin order sheet to somewhat more intense coverage. The patient had a delayed primary closure of the abdominal incision and we will keep him more or less n.p.o. until his GI tract shows some resumed function. If he does ok today we will start a full liquid diet at supper. We will restart some Lovenox today as well as Plavix and restart the coumadinization process as well. Otherwise, he will be started on Flomax and then will try getting the bladder catheter out tomorrow morning. Benja Multani MD /[id number]
[2016-06-15] MEDS: Gabapentin 300 MG Cap PO SCH ×2 (09:33→20:22)
[2016-06-15] MEDS: Potassium Chloride 10 MEQ Cap.ER PO SCH (09:34)
[2016-06-15] MEDS: Carvedilol 3.125 MG Tab PO SCH ×2 (09:34→20:19)
[2016-06-15] MEDS: Bisacodyl 5 MG Tab PO SCH ×2 (09:35→20:19)
[2016-06-15] MEDS: Furosemide 40 MG Tab PO SCH (09:36)
[2016-06-15] MEDS: Calcium Polycarbophil 625 MG Tab PO SCH (09:37)
[2016-06-15] MEDS: metFORMIN 500 MG Tab PO SCH ×2 (09:38→16:13)
[2016-06-15] MEDS: Fluticasone Propionate Nasal Spray 16 GM Bottle NASBOTH SCH ×2 (09:39→20:20)
[2016-06-15] MEDS: Insulin Detemir 100 Units/ML 3 ML Pen SUBCUT SCH ×2 (09:41→21:45)
[2016-06-15] MEDS: Clopidogrel 75 MG Tab PO SCH (09:42)
[2016-06-15] MEDS: VERIFY FENT PATCH TOP SCH ×2 (09:42→20:22)
--- NOTE | 2016-06-15 09:52 | OR ---
DATE OF PROCEDURE: 06/12/2016 PREOPERATIVE DIAGNOSIS: Acute cholecystitis. POSTOPERATIVE DIAGNOSES: 1. Hemorrhagic acute cholecystitis with cholelithiasis and extensive fibrotic reaction to the liver and cystohepatic triangle. 2. Pericholecystic abscess. OPERATIVE PROCEDURE: Diagnostic laparotomy, converted to open laparotomy with: 1. Cholecystectomy (59404). 2. Drainage of pericholecystic abscess (00071). ANESTHESIA: General. ADVERTISING JOB TITLES: Lilian Martin PA-C. INDICATIONS FOR PROCEDURE: The patient presents with worsening presentation of cholecystitis. After being seen in the emergency room, the patient underwent a CCK- stimulated HIDA scan yesterday, which showed no filling of the gallbladder and the patient clinically is quite tender over that area consistent with an acute cholecystitis. The patient was admitted for IV antibiotics and reversal of his Coumadin by means of Vitamin K. At this time, he is to undergo laparoscopic, if necessary open,cholecystectomy. Potential risks including bleeding, infection, injury to the underlying viscera, possible migration of stones in the common bile duct requiring additional procedures for correction as well as remote possibility of cardiopulmonary, septic, or hemorrhagic complications leading to were all discussed, and the patient wishes to proceed. DETAILS OF PROCEDURE: The patient was taken to the operating room and placed in a supine position. After general endotracheal anesthesia was induced, the abdomen was prepped and draped. The patient was noted to have an obvious fullness in the right mid subcostal area consistent with acute cholecystitis. Just to the right of midline, a transverse incision was made. The peritoneal cavity was entered under direct vision with Optiview trocar inflated to 15 mmHg pressure with CO2. The laparoscope was reinserted. No underlying trocar insertion site injuries were seen. Following this, initially the epigastric 12-mm trocar was placed along with a right mid abdominal 5-mm trocar and subsequently additional 5-mm trocars were placed. As the omentum was peeled off, the gallbladder was noted to have a hemorrhagic acute cholecystitis. As one elevated this area there was blood-tinged purulent fluid collection behind the gallbladder consistent with pericholecystic abscess. This area was drained and cultures were obtained. At this point, dissection began initially in the area of the gallbladder neck. This appeared to be fairly formidable at this point, and we elected to proceed taking the gallbladder from above down position. This got down to the point of roughly the gallbladder neck when it became evident that safe dissection from the transition of the gallbladder neck into the cystohepatic triangle would not be safe with a laparoscopic approach and the trocars were removed and the peritoneal cavity was deflated. Using a blunt dissection, primarily manually, the gallbladder was then traced downward and eventually the cystic artery and cystic duct were each well identified. To confirm that what we were feeling was the cystic duct, the gallbladder was opened and the surgeon's finger passed down to the area of the gallbladder outlet, which then confirmed the anatomic relationship to what we viewed as the cystic duct. This was then divided with a JANICE coats load as it was fairly thickened and cystic artery was then divided with vascular JANICE load and the specimen was delivered from the field. The area of dissection was inspected. No bleeding or other problems were noted. At this point, the abdomen was irrigated with a meropenem-containing saline solution. Two Jose De Jesus- Armando drains were placed, one posterior to the gallbladder bed in the dependent portion behind the liver and one into the gallbladder bed. The incision was then closed with 2 layers of #2 Vicryl stitch. The skin and subcutaneous tissue were felt to be high risk for a wound infection and primary closure was undertaken. Given this, the wound was packed open for subsequent delayed primary closure. The 12-mm camera port adjacent to the umbilicus still had some fascial defect, and this was closed off with a [id number] 0-Vicryl stitch as well and the wound likewise was packed open. The dressing was applied. The patient was taken to the recovery room in satisfactory condition. Physician fast food sales assistant Lilian Martin played an essential role in assisting in this case, helping to position the patient, retract the structures as needed, as well as suturing and cutting sutures and removing as indicated. Her presence improved the patient's safety and decreased operative time. Benja Multani MD /[id number]
[2016-06-15] MEDS: CRANBERRY 12600 MG PO SCH (10:40)
[2016-06-15] MEDS: Magnesium Sulfate/Water 2 GM in Premix Bag 1 BAG IV SCH ×3 (11:31→21:51)
[2016-06-15] MEDS: Insulin Aspart 100 Units/ML 3 ML Pen SUBCUT PRN ×3 (11:37→21:49)
[2016-06-15] MEDS: Acetaminophen/HYDROcodone 325-5 MG Tab PO PRN ×2 (11:41→21:52)
[2016-06-15] MEDS ORDERED: Warfarin 2.5 MG Tab PO SCH (13:00)
[2016-06-15] MEDS: fentaNYL 25 MCG/HR Transdermal Patch TRDERM SCH (15:51)
[2016-06-15] MEDS: Losartan 50 MG Tab PO SCH (16:12)
[2016-06-15] MEDS: Pantoprazole 40 MG Tab.CR PO SCH (16:13)
[2016-06-15] MEDS: Tamsulosin 0.4 MG Cap.ER PO SCH (20:20)
[2016-06-15] MEDS: Melatonin 3 MG Tab PO SCH (20:21)
[2016-06-15] MEDS: traZODone 50 MG Tab PO SCH (20:23)
[2016-06-15] MEDS: Simvastatin 20 MG Tab PO SCH (20:24)
[2016-06-16] MEDS: Enoxaparin 40 MG/0.4 ML Syringe SUBCUT SCH ×2 (02:18→09:45)
[2016-06-16] MEDS: Magnesium Sulfate/Water 2 GM in Premix Bag 1 BAG IV SCH (03:37)
[2016-06-16] MEDS: Meropenem 500 MG in Sodium Chloride 0.9% 50 ML IV SCH (05:33)
[2016-06-16] MEDS: Acetaminophen/HYDROcodone 325-5 MG Tab PO PRN (07:18)
[2016-06-16 07:32] VITALS: BP 145/76
[2016-06-16] MEDS: metFORMIN 500 MG Tab PO SCH (08:13)
[2016-06-16] MEDS: Clopidogrel 75 MG Tab PO SCH ×2 (08:13→08:23)
[2016-06-16] MEDS: Carvedilol 3.125 MG Tab PO SCH (08:13)
[2016-06-16] MEDS: Bisacodyl 5 MG Tab PO SCH (08:13)
[2016-06-16] MEDS: Furosemide 40 MG Tab PO SCH (08:14)
[2016-06-16] MEDS: Fluticasone Propionate Nasal Spray 16 GM Bottle NASBOTH SCH (08:14)
[2016-06-16] MEDS: VERIFY FENT PATCH TOP SCH (08:15)
[2016-06-16] MEDS: CRANBERRY 12600 MG PO SCH (08:15)
[2016-06-16] MEDS: Potassium Chloride 10 MEQ Cap.ER PO SCH (08:16)
[2016-06-16] MEDS: Gabapentin 300 MG Cap PO SCH (08:16)
[2016-06-16] MEDS: Calcium Polycarbophil 625 MG Tab PO SCH (08:17)
[2016-06-16] MEDS: Insulin Detemir 100 Units/ML 3 ML Pen SUBCUT SCH (08:17)
--- NOTE | 2016-06-18 09:15 | PN ---
DATE OF SERVICE: 06/14/2016 SUBJECTIVE: Eldon reports his pain is controlled. His vital signs have been stable. Blood sugars have been a little bit elevated. He has been getting his coverage for his blood sugars per the sliding scale. He has no other concerns or questions. OBJECTIVE: GENERAL: Eldon Mast is a 60-year-old male. He is alert and orientated. VITAL SIGNS: TPR is 98.8, 80, 18. Blood pressure 136/84. HEENT: Negative. NECK: Supple. HEART: Regular rate and rhythm. LUNGS: Clear. ABDOMEN: Staple line looks good. Midline drain is in place. His second STEPHEN drain has been draining 35 mL of a light pink serosanguineous drainage. EXTREMITIES: Without peripheral edema. ASSESSMENT: 1. Laparoscopy turned to laparotomy, cholecystectomy on 06/11/2016. 2. Delayed primary closure, 06/13/2016. PLAN: 1. Continue to check blood sugars. 2. Discontinue OPTICAL ASSISTANT. 3. Continue same Coumadin dose as he has at home. 4. Check CBC, CMP in a.m. 5. Dilaudid 2 mg 1 to 2 every 4 hours p.r.n. pain. 6. We will evaluate p.r.n. or in a.m. Lilian Martin PA-C /[id number]
--- NOTE | 2016-06-18 23:21 | DISCH ---
ADMISSION DIAGNOSES: 1. Acute cholecystitis. 2. 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 3. Hypercholesterolemia. 4. Hypertension. 5. Renal calculus. 6. Diabetes type 2. 7. Lung resection. 8. Thoracotomy. 9. Chronic anticoagulation therapy. DISCHARGE DIAGNOSES: Diagnostic laparoscopy converted to laparotomy with cholecystectomy and drainage of pericholecystic abscess for hemorrhagic acute cholecystitis with cholelithiasis and extensive fibrotic reaction to the liver and cystohepatic triangle and pericholecystic abscess on 06/12/2016. HISTORY: Eldon Mast is a 60-year-old male who presented with worsening presentation of cholecystitis. After being seen in the emergency room, the patient underwent a CCK- stimulated HIDA scan yesterday showing decreased ejection fraction and the patient was tender over that area consistent with acute cholecystitis. Eldon was admitted for IV antibiotics and reversal of Coumadin by means of vitamin K. After preoperative evaluation and discussion of possible risks and possible complications, the patient wished to proceed with surgical procedure. HOSPITAL COURSE: Eldon had a surgery on 06/12/2016. He had no operative complications. On postop day 1, his vital signs were stable. He did retain some urine, so the Rcaig catheter was put back in. Blood sugars were a little bit high and they were treated appropriately. On 06/13/2016, he had a delayed primary closure by Dr. Benja Multani. He had some bowel stimulation and did have a bowel movement. His activity was good. He was able to be discharged to home on 06/16/2016. PHYSICAL EXAMINATION: GENERAL: Eldon is a 60-year-old male. He is alert and orientated. VITAL SIGNS: Height is 5 feet 6.9 inches. Weight is not recorded. TPR was 96.1, 63, 16, blood pressure 145/76. HEENT: Negative. NECK: Supple. HEART: Regular rate and rhythm. LUNGS: Clear. ABDOMEN: Rebeka in place. Abdomen is soft, normally tender. EXTREMITIES: Without peripheral edema. DISPOSITION: Discharged to home. CONDITION: Stable and improving. FOLLOWUP APPOINTMENT: Lilian Martin PA-C on 06/24/2016 at 9:00 a.m. HOME MEDICATIONS: Tylenol 650 mg every 4 hours p.r.n. pain, Entriken 5/325 mg 1 to 2 every 4 hours p.r.n. and he has enough medication at home. He tells me Lovenox 40 mg subcu q.12 hours; he will be coming into the hospital to get his injections for 5 days. Flomax 0.4 mg at bedtime #14. He is to resume his home medication of FiberCon one daily, carvedilol 3.125 mg oral daily, Plavix 75 mg daily, cranberry and ascorbic acid one tablet daily, Flonase 1 spray each nostril twice a day, Lasix 40 mg daily, Neurontin 600 mg oral twice daily, NovoLog 12-15 subcu 4 times a day, Levemir 30 units subcu daily, losartan potassium 25 oral daily, melatonin 6 mg at bedtime, multivitamin 1 tablet every morning, potassium 99 oral daily, simvastatin 40 mg at bedtime, Flomax 0.4 mg at bedtime, vitamin D, folic acid, B2, B6, B12, Folgard tablets one daily. Warfarin 3.75 mg oral as directed, Coumadin 2.5 oral as directed, Benadryl 50 mg 4 times a day, Glucophage 1000 mg daily, trazodone 200 mg at bedtime. DIET AFTER DISCHARGE: Usual diet as tolerated. Drink 8 to 10 glasses of water a day. ACTIVITY: No lifting greater than 8 pounds, walk 8 times daily inside your home. Driving, do not drive while on pain medication. Shower bathing, may shower. Notify provider if any fever, increased pain, swelling, redness, drainage, nausea, or vomiting. Wound incision care: Keep site clean and dry. Wear abdominal binder for 6 weeks if tolerated. Empty midline STEPHEN drain 4 times a day and record amounts. Use incentive spirometer 10 times every hour while awake. Come to hospital and get Lovenox injection every 12 hours for 5 days. Have PT and INR checked at the clinic on , 06/18/2016.
== END 2016-06-16 10:07 | disposition home or self-care (01) | DRG 416 ==
LOC: JP.ICU 13:10 → JP.MS 06-12 15:30
PROVIDERS: ADMIT Surgery; ATTEND Surgery
PROC: 0FJ44ZZ Inspection of Gallbladder, Percutaneous Endoscopic Approach (ICD-10-PCS; principal; 2016-06-12)
PROC: 0W9G0ZX Drainage of Peritoneal Cavity, Open Approach, Diagnostic (ICD-10-PCS; principal; 2016-06-12)
PROC: 0FT40ZZ Resection of Gallbladder, Open Approach (ICD-10-PCS; principal; 2016-06-12)
PROC: 0WQF0ZZ Repair Abdominal Wall, Open Approach (ICD-10-PCS; 2016-06-13)
DX: K80.00 Calculus of gallbladder with acute cholecystitis without obstruction (principal); R58 Hemorrhage, not elsewhere classified; D13.5 Benign neoplasm of extrahepatic bile ducts; E11.9 Type 2 diabetes mellitus without complications; I10 Essential (primary) hypertension; Z95.1 Presence of aortocoronary bypass graft; Z95.2 Presence of prosthetic heart valve; E78.00 Pure hypercholesterolemia, unspecified; I25.2 Old myocardial infarction; Z48.1 Encounter for planned postprocedural wound closure; Z79.01 Long term (current) use of anticoagulants; Z79.4 Long term (current) use of insulin; Z79.84 Long term (current) use of oral hypoglycemic drugs; Z88.1 Allergy status to other antibiotic agents; Z88.0 Allergy status to penicillin; Z88.2 Allergy status to sulfonamides; R33.9 Retention of urine, unspecified
CPT/HCPCS: 36415; 80053; 82962; 83735; 83880; 84100; 85027; 85610; 87070; 87075; 87205; 88304; 92960; 93005; 94762; A9270-GY; C9113; J1100; J1650; J2175; J2185; J2250; J2310; J2405; J2704; J3010; J3430; J3475; J3490; J7042; J7050; J7120

== ENCOUNTER 2016-08-03 06:21 | Emergency (ER) | payer MEDICARE, BC ==
[2016-08-03 06:44] VITALS: BP 110/61
--- NOTE | 2016-08-03 07:16 | EDM.PDOC ---
ED HISTORY OF PRESENT ILLNESS - General Chief Complaint: Respiratory Problem Stated Complaint: WEAK AND COUGHING Time Seen by Provider: 08/03/16 07:06 Source: Reports: Patient, RN notes reviewed History Limitations: Reports: No limitations - History of Present Illness INITIAL COMMENTS - FREE TEXT/NARRATIVE: 61-year-old male presents emergency department day complaint of shortness of breath, he states been ill for about 24 hours developed fevers last night no nausea vomiting chest pains other GI symptomatologies recently had a cholecystectomy about one month ago, recently completed a course of azithromycin - Related Data Allergies/ADRs: Allergies Allergy/AdvReac Type Severity Reaction Status Date / Time Cephalosporins Allergy Itching Verified 08/03/16 06:44 Penicillins Allergy Dizziness Verified 08/03/16 06:44 Sulfa (Sulfonamide Allergy Itching Verified 08/03/16 06:44 Antibiotics) vancomycin Allergy Facial Verified 08/03/16 06:44 Swelling Home Meds: Home Meds Calcium Polycarbophil [Fibercon] 1 tab PO QAM 03/04/13 [History] Carvedilol 3.125 mg PO BID 03/04/13 [History] Cranberry Conc/Ascorbic Acid [Cranberry 12,600 mg Softgel] 1 tab PO QAM [History] Furosemide 40 mg PO QAM 03/04/13 [History] Losartan Potassium 25 mg PO QPM 03/04/13 [History] Multivitamin with Minerals [Multiple Vitamin] 1 tab PO QAM 03/04/13 [History] Simvastatin 40 mg PO BEDTIME 03/04/13 [History] Vit D3/Folic Acid/B2/B6/B12 [Folgard Tablet] 1 each PO QAM 03/04/13 [History] Warfarin [Coumadin] 2.5 mg PO ASDIRECTED 03/04/13 [History] Warfarin [Coumadin] 3.75 mg PO ASDIRECTED 03/04/13 [History] metFORMIN [Glucophage] 1,000 mg PO BID 03/04/13 [History] Fluticasone Propionate [Flonase] 1 spray NS BID 04/07/13 [History] Insulin Aspart [NovoLOG] 12 - 15 unit SQ QID 01/11/15 [History] Insulin Detemir [Levemir] 20 unit SQ BID 01/11/15 [History] diphenhydrAMINE [Benadryl] 50 mg PO QID PRN 01/11/15 [History] Gabapentin [Neurontin] 600 mg PO BID 02/10/15 [History] traZODone 200 mg PO BEDTIME 06/27/15 [History] Clopidogrel [Plavix] 75 mg PO DAILY 08/10/15 [History] Potassium 99 mg PO DAILY 06/10/16 [History] Melatonin 6 mg PO BEDTIME 06/11/16 [History] Acetaminophen [Tylenol] 650 mg PO Q4H PRN #0 tablet 06/16/16 [Rx] Acetaminophen/HYDROcodone [[place] 325-5 MG] 1 - 2 tab PO Q4H PRN #0 tablet [Rx] Acetaminophen/HYDROcodone [[place] 325-10 MG] 0.5 tab PO TID 08/03/16 [History] Levofloxacin [IJD: Levofloxacin] 750 mg PO DAILY #7 tab 08/03/16 [Rx] Past Medical History HEENT History: Reports: Sinusitis Cardiovascular History: Reports: Bypass, CAD, Heart valve replacement, High cholesterol, Hypertension, [place] Gastrointestinal History: Reports: Cholelithiasis Genitourinary History: Reports: Renal calculus Endocrine/Metabolic History: Reports: Diabetes, type II Other Dermatologic History: infected bug bites - Past Surgical History Cardiovascular Surgical History: Reports: Coronary artery bypass, Valve replacement Respiratory Surgical History: Reports: Lung Resection, Thoracotomy GI Surgical History: Reports: Appendectomy, Cholecystectomy Musculoskeletal Surgical History: Reports: Shoulder surgery Social & Family History - Tobacco Use Smoking Status *Q: Former Smoker Used Tobacco, but Quit: Yes Month Tobacco Last Used: 0 Second Hand Smoke Exposure: No - Caffeine Use Caffeine Use: Reports: Coffee - Alcohol Use Days Per Week of Alcohol Use: 0 - Recreational Drug Use Recreational Drug Use: No ED ROS GENERAL - Review of Systems Review Of Systems: See Below Constitutional: Reports: fever, chills HEENT: Reports: No symptoms Respiratory: Reports: Shortness of Breath, Cough. Denies: Sputum Cardiovascular: Reports: No symptoms GI/Abdominal: Reports: No symptoms : Reports: no symptoms Musculoskeletal: Reports: no symptoms Skin: Reports: no symptoms Neurological: Reports: No Symptoms ED EXAM, GENERAL - Physical Exam Exam: See Below Free Text/Narrative:: General: Male, not in any distress, alert and oriented x3 HEENT: head is atraumatic normocephalic, eyes pupils equal round reactive to light, sclera clear no conjunctivitis appreciated. Ears tympanic membranes clear and conn landmarks and light reflex are present bilaterally canals are clear. Nose no septal deviation, nares are clear, no blood present. Mouth mucosa is moist and pink no erythema or exudate noted in soft palate, tongue is midline uvula is midline, dentition is intact. Neck: Supple no thyromegaly no tracheal deviation. Nodes: Cervical nodes subclavicular nodes nontender no palpable lymphadenopathy noted. Lungs: Decreased breath sounds rhonchi and wheezes on the left CV: Regular rate and rhythm S1 and S2 mechanical click noted with murmur consistent with valve Abdomen: Soft, nontender, no palpable masses or organomegaly appreciated, no distention no guarding bowel sounds are present, . Neuro: Cranial nerves II through XII grossly intact Skin: Warm and dry, intact Extremities: No lower extremity edema appreciated, Course - Vital Signs Last Recorded V/S: Last Vital Signs Temp 100.8 F H 08/03/16 08:35 Pulse 94 08/03/16 08:35 Resp 16 08/03/16 08:35 BP 110/61 08/03/16 06:42 Pulse Ox 94 L 08/03/16 08:35 - Orders/Labs/Meds Orders: Active Orders 24 hr Category Date Time Status Chest 2V [CR] Urgent Exams 08/03/16 07:12 Taken Labs: Laboratory Tests 08/03/16 08/03/16 08/03/16 Range/Units 07:15 07:15 07:15 WBC 10.7 (4.5-11.0) K/uL RBC 4.65 (4.30-5.90) M/uL Hgb 13.2 (12.0-15.0) g/dL Hct 41.0 (40.0-54.0) % MCV 88 (80-98) fL MCH 28 (27-31) pg MCHC 32 (32-36) % Plt Count 196 (150-400) K/uL Neut % (Auto) 79 H (36-66) % Lymph % (Auto) 11 L (24-44) % [place] % (Auto) 10 H (2-6) % Eos % (Auto) 1 L (2-4) % Baso % (Auto) 0 (0-1) % PT 25.1 H (9.5-12.0) sec INR 2.31 H (0.80-1.20) Sodium 134 L (140-148) mmol/L Potassium 4.7 (3.6-5.2) mmol/L Chloride 99 L (100-108) mmol/L Carbon Dioxide 30 (21-32) mmol/L Anion Gap 9.7 (5.0-14.0) mmol/L BUN 21 H D (7-18) mg/dL Creatinine 1.2 (0.8-1.3) mg/dL Est Cr Clr Drug Dosing 60.96 mL/min Estimated GFR (MDRD) > 60 (>60) Glucose 152 H (74-106) mg/dL Lactic Acid (0.4-2.0) mmol/L Calcium 8.5 (8.5-10.1) mg/dL Total Bilirubin 0.7 (0.2-1.0) mg/dL AST 20 (15-37) U/L ALT 19 (12-78) U/L Alkaline Phosphatase 71 (46-116) U/L Total Protein 7.9 (6.4-8.2) g/dL Albumin 3.8 (3.4-5.0) g/dL Globulin 4.1 H (2.3-3.5) g/dL Albumin/Globulin Ratio 0.9 L (1.2-2.2) Urine Color Urine Appearance Urine pH (4.5-8.0) Ur Specific [place] (1.008-1.030) Urine Protein (NEGATIVE) mg/dL Urine Glucose (UA) (NEGATIVE) mg/dL Urine Ketones (NEGATIVE) mg/dL Urine Occult Blood (NEGATIVE) Urine Nitrite (NEGAITVE) Urine Bilirubin (NEGATIVE) Urine Urobilinogen (NORMAL) mg/dL Ur Leukocyte Esterase (NEGATIVE) Urine RBC (0-5) Urine WBC (0-5) Ur Epithelial Cells Amorphous Sediment Urine Bacteria Urine Mucus Urine Other 08/03/16 08/03/16 Range/Units 08:16 08:21 WBC (4.5-11.0) K/uL RBC (4.30-5.90) M/uL Hgb (12.0-15.0) g/dL Hct (40.0-54.0) % MCV (80-98) fL MCH (27-31) pg MCHC (32-36) % Plt Count (150-400) K/uL Neut % (Auto) (36-66) % Lymph % (Auto) (24-44) % [place] % (Auto) (2-6) % Eos % (Auto) (2-4) % Baso % (Auto) (0-1) % PT (9.5-12.0) sec INR (0.80-1.20) Sodium (140-148) mmol/L Potassium (3.6-5.2) mmol/L Chloride (100-108) mmol/L Carbon Dioxide (21-32) mmol/L Anion Gap (5.0-14.0) mmol/L BUN (7-18) mg/dL Creatinine (0.8-1.3) mg/dL Est Cr Clr Drug Dosing mL/min Estimated GFR (MDRD) (>60) Glucose (74-106) mg/dL Lactic Acid 3.0 H (0.4-2.0) mmol/L Calcium (8.5-10.1) mg/dL Total Bilirubin (0.2-1.0) mg/dL AST (15-37) U/L ALT (12-78) U/L Alkaline Phosphatase (46-116) U/L Total Protein (6.4-8.2) g/dL Albumin (3.4-5.0) g/dL Globulin (2.3-3.5) g/dL Albumin/Globulin Ratio (1.2-2.2) Urine Color Yellow Urine Appearance Cloudy Urine pH 5.0 (4.5-8.0) Ur Specific [place] 1.025 (1.008-1.030) Urine Protein 30 H (NEGATIVE) mg/dL Urine Glucose (UA) Normal (NEGATIVE) mg/dL Urine Ketones Negative (NEGATIVE) mg/dL Urine Occult Blood Trace (NEGATIVE) Urine Nitrite Negative (NEGAITVE) Urine Bilirubin Small (NEGATIVE) Urine Urobilinogen 4 (NORMAL) mg/dL Ur Leukocyte Esterase Negative (NEGATIVE) Urine RBC 0-5 (0-5) Urine WBC 0-5 (0-5) Ur Epithelial Cells Rare Amorphous Sediment Few Urine Bacteria Moderate Urine Mucus Many Urine Other See note - Re-Assessments/Exams Free Text/Narrative Re-Assessment/Exam: 08/03/16 08:20 curb 65 score is 1 08/03/16 08:21 Departure - Departure Time of Disposition: 09:08 Disposition: Home, Self-Care 01 Condition: fair Clinical Impression: CAP (community acquired pneumonia) Prescriptions: Levofloxacin [IJD: Levofloxacin] 750 mg PO DAILY #7 tab Forms: ED Department Discharge Additional Instructions: Take full course of antibiotics, please followup with your primary care provider tomorrow - My Orders Last 24 Hours: My Active Orders 08/03/16 07:12 Chest 2V [CR] Urgent - Assessment/Plan Last 24 Hours: My Active Orders 08/03/16 07:12 Chest 2V [CR] Urgent Plan: Assessment Acuity = acute Site and laterality = community-acquired pneumonia complicated patient with known coronary artery disease, diabetes mellitus type 2 and on chronic anticoagulation Etiology = suspicious for bacterial cause Manifestations = fever, cough, dyspnea Location of injury = home Lab values = INR therapeutic at 2.31 sodium low at 134 consistent hyponatremia BUN mildly elevated at 21 lactic acid elevated at 3.0 consistent lactic acidosis urinalysis 1.025 for specific gravity consistent with dehydration chest x-ray I did review films myself I cannot appreciate any acute process, the official read from radiology is pending, influenza A and B negative Plan I discussed the case with his primary care provider patient did not want to do hospital admission wanted to try as an outpatient first, therefore will start him on levofloxacin today Dr. Patel his primary care provider will see him tomorrow if he has any new developments or continues to be short of breath he will return to the emergency department for admission Patient was in agreement with the plan all questions were answered, they were instructed to return to the emergency department or call for worsening symptoms. This note was dictated using [employer] voice recognition software please call with any questions.
--- NOTE | 2016-08-03 10:14 | CR ---
Chest 2V HISTORY: Shortness of breath. COMPARISON: Chest x-ray 09/16/2015. FINDINGS: Chronic pleural parenchymal changes bilaterally. Prior median sternotomy and valve replace ment. No acute new infiltrate.
== END 2016-08-03 09:36 | disposition home or self-care (01) ==
LOC: JP.ED 06:21
DX: J18.9 Pneumonia, unspecified organism (principal); E11.9 Type 2 diabetes mellitus without complications; I25.810 Atherosclerosis of coronary artery bypass graft(s) without angina pectoris; E78.00 Pure hypercholesterolemia, unspecified; I10 Essential (primary) hypertension; I25.2 Old myocardial infarction; Z90.49 Acquired absence of other specified parts of digestive tract; Z88.0 Allergy status to penicillin; Z88.2 Allergy status to sulfonamides; Z88.1 Allergy status to other antibiotic agents; Z79.899 Other long term (current) drug therapy; Z98.890 Other specified postprocedural states; Z87.891 Personal history of nicotine dependence; Z79.01 Long term (current) use of anticoagulants; Z79.84 Long term (current) use of oral hypoglycemic drugs; Z79.4 Long term (current) use of insulin
CPT/HCPCS: 36415; 71020; 71020-26; 80053; 81001; 83605; 85025; 85610; 87804; 99283; 99285

== ENCOUNTER 2016-10-05 13:11 | Emergency (ER) | payer MEDICARE, BC ==
[2016-10-05 15:25] VITALS: BP 140/61
--- NOTE | 2016-10-05 17:21 | EDM.PDOC ---
ED HPI GENERAL MEDICAL PROBLEM - General Chief Complaint: Abdominal Pain Stated Complaint: POSSIBLE BLADDER INFECTION. Time Seen by Provider: 10/05/16 15:00 - History of Present Illness INITIAL COMMENTS - FREE TEXT/NARRATIVE: Eldon Mast is a 61 yo male with history of aortic valve replacement currently on warfarin who presents with flank pain. Pain has been worsening for 1 week but has become more unbearable over the past 2 days. Patient saw his PCP 1 week ago and was started on Cipro for possible UTI as there was WBC's and RBC's in his urine. Patient does have a home supply of opiates he uses as needed for his symptoms. Patient denies fever, vomiting, intolerance of antibiotic, or difficulty urinating. Right Lower Abdominal Pain Score (Numeric/FACES): 6 - Related Data Allergies Allergy/AdvReac Type Severity Reaction Status Date / Time Cephalosporins Allergy Itching Verified 08/03/16 06:44 Penicillins Allergy Dizziness Verified 08/03/16 06:44 Sulfa (Sulfonamide Allergy Itching Verified 08/03/16 06:44 Antibiotics) vancomycin Allergy Facial Verified 08/03/16 06:44 Swelling Home Meds: Home Meds Calcium Polycarbophil [Fibercon] 1 tab PO QAM 03/04/13 [History] Carvedilol 3.125 mg PO BID 03/04/13 [History] Cranberry Conc/Ascorbic Acid [Cranberry 12,600 mg Softgel] 1 tab PO QAM [History] Furosemide 40 mg PO QAM 03/04/13 [History] Losartan Potassium 25 mg PO QPM 03/04/13 [History] Multivitamin with Minerals [Multiple Vitamin] 1 tab PO QAM 03/04/13 [History] Simvastatin 40 mg PO BEDTIME 03/04/13 [History] Vit D3/Folic Acid/B2/B6/B12 [Folgard Tablet] 1 each PO QAM 03/04/13 [History] Warfarin [Coumadin] 2.5 mg PO ASDIRECTED 03/04/13 [History] Warfarin [Coumadin] 3.75 mg PO ASDIRECTED 03/04/13 [History] metFORMIN [Glucophage] 1,000 mg PO BID 03/04/13 [History] Fluticasone Propionate [Flonase] 1 spray NS BID 04/07/13 [History] Insulin Aspart [NovoLOG] 12 - 15 unit SQ QID 01/11/15 [History] Insulin Detemir [Levemir] 20 unit SQ BID 01/11/15 [History] diphenhydrAMINE [Benadryl] 50 mg PO QID PRN 01/11/15 [History] Gabapentin [Neurontin] 600 mg PO BID 02/10/15 [History] traZODone 200 mg PO BEDTIME 06/27/15 [History] Clopidogrel [Plavix] 75 mg PO DAILY 08/10/15 [History] Potassium 99 mg PO DAILY 06/10/16 [History] Melatonin 6 mg PO BEDTIME 06/11/16 [History] Acetaminophen [Tylenol] 650 mg PO Q4H PRN #0 tablet 06/16/16 [Rx] Acetaminophen/HYDROcodone [[place] 325-5 MG] 1 - 2 tab PO Q4H PRN #0 tablet [Rx] Acetaminophen/HYDROcodone [[place] 325-10 MG] 0.5 tab PO TID 08/03/16 [History] Ciprofloxacin HCl [Cipro] 10/05/16 [History] Past Medical History HEENT History: Reports: Sinusitis Cardiovascular History: Reports: Bypass, CAD, Heart Valve Replacement, High Cholesterol, Hypertension, [place] Gastrointestinal History: Reports: Cholelithiasis Genitourinary History: Reports: Renal Calculus Endocrine/Metabolic History: Reports: Diabetes, Type II Other Dermatologic History: infected bug bites - Past Surgical History Cardiovascular Surgical History: Reports: Coronary Artery Bypass, Valve Replacement Respiratory Surgical History: Reports: Lung Resection, Thoracotomy GI Surgical History: Reports: Appendectomy, Cholecystectomy Musculoskeletal Surgical History: Reports: Shoulder Surgery Social & Family History - Tobacco Use Smoking Status *Q: Never Smoker Used Tobacco, but Quit: Yes Month Tobacco Last Used: 0 Second Hand Smoke Exposure: No - Caffeine Use Caffeine Use: Reports: Soda - Alcohol Use Days Per Week of Alcohol Use: 0 - Recreational Drug Use Recreational Drug Use: No ED ROS GENERAL - Review of Systems Review Of Systems: See Below Constitutional: Reports: No Symptoms HEENT: Reports: No Symptoms Respiratory: Reports: No Symptoms Cardiovascular: Reports: No Symptoms GI/Abdominal: Reports: Abdominal Pain : Reports: Dysuria, Hematuria Musculoskeletal: Reports: Back Pain Skin: Reports: No Symptoms Neurological: Reports: No Symptoms Psychiatric: Reports: No Symptoms ED EXAM, RENAL/ - Physical Exam Exam: See Below Exam Limited By: No Limitations General Appearance: Alert, No Apparent Distress Respiratory/Chest: No Respiratory Distress, Lungs Clear Cardiovascular: Regular Rate, Rhythm GI/Abdominal: Soft, No Distention, Tender (mild tenderness to RLQ into right flank) Back Exam: CVA Tenderness (R) Neurological: Alert, Oriented Psychiatric: Normal Affect, Normal Mood Course - Vital Signs Last Recorded V/S: Last Vital Signs Temp 97.7 F 10/05/16 14:12 Pulse 67 10/05/16 15:24 Resp 20 10/05/16 15:24 BP 140/61 10/05/16 15:24 Pulse Ox 95 10/05/16 15:24 - Orders/Labs/Meds Orders: Active Orders 24 hr Category Date Time Status Abdomen Pelvis wo Cont [CT] Stat Exams 10/05/16 15:24 Taken Post Void Residual [OM.PC] Routine Oth 10/05/16 14:21 Ordered Labs: Laboratory Tests 10/05/16 Range/Units 14:37 Urine Color Yellow Urine Appearance Clear Urine pH 5.0 (4.5-8.0) Ur Specific [place] 1.020 (1.008-1.030) Urine Protein Negative (NEGATIVE) mg/dL Urine Glucose (UA) Normal (NEGATIVE) mg/dL Urine Ketones Negative (NEGATIVE) mg/dL Urine Occult Blood Large (NEGATIVE) Urine Nitrite Negative (NEGAITVE) Urine Bilirubin Negative (NEGATIVE) Urine Urobilinogen Normal (NORMAL) mg/dL Ur Leukocyte Esterase Negative (NEGATIVE) Urine RBC 75-100 H (0-5) Urine WBC 5-10 H (0-5) Ur Epithelial Cells Few Amorphous Sediment Not seen Urine Bacteria Many Urine Mucus Not seen Departure - Departure Time of Disposition: 17:30 Disposition: Home, Self-Care 01 Condition: Good Clinical Impression: Kidney stone on right side - Discharge Information Instructions: Kidney Stones Referrals: Nilay Patel Sr, MD [Primary Care Provider] - Forms: ED Department Discharge Additional Instructions: Follow up with your primary care provider in 2-3 days for reevaluation. Return to the Emergency Department with uncontrolled pain, inability to urinate, fever , or with worsened symptoms of any kind. Continue taking Cipro. - My Orders Last 24 Hours: My Active Orders 10/05/16 14:21 Post Void Residual [OM.PC] Routine 10/05/16 15:24 Abdomen Pelvis wo Cont [CT] Stat - Assessment/Plan Last 24 Hours: My Active Orders 10/05/16 14:21 Post Void Residual [OM.PC] Routine 10/05/16 15:24 Abdomen Pelvis wo Cont [CT] Stat Assessment:: 61 yo male on Warfarin with 1 week of flank pain and hematuria. Urinalysis does show hematuria with bacteria and elevated WBC count but no other infectious markers. CT shows 4-5 mm obstructing stone in proximal ureter. With normal vitals and patient not having acute pain or symptoms otherwise while here in the ED I do not feel this is an infected stone. Patient will continue Cipro and begin Flomax. Patient does have history of kidney stones and will have close follow up with Dr. Patel, his PCP, who will decide if further urology consults are necessary. Patient was agreeable with this plan. Urine was sent for culture. Reasons to return to the ED were discussed.
== END 2016-10-05 17:30 | disposition home or self-care (01) ==
LOC: JP.ED 13:11
DX: N13.2 Hydronephrosis with renal and ureteral calculous obstruction (principal); Z95.2 Presence of prosthetic heart valve; Z79.01 Long term (current) use of anticoagulants; I25.810 Atherosclerosis of coronary artery bypass graft(s) without angina pectoris; I10 Essential (primary) hypertension; E78.00 Pure hypercholesterolemia, unspecified; E11.9 Type 2 diabetes mellitus without complications; Z79.4 Long term (current) use of insulin; Z79.84 Long term (current) use of oral hypoglycemic drugs; Z79.02 Long term (current) use of antithrombotics/antiplatelets; Z79.899 Other long term (current) drug therapy; I25.2 Old myocardial infarction
CPT/HCPCS: 74176; 81001; 99284; 99284-25

== ENCOUNTER 2017-06-18 20:01 | Emergency (ER) | payer MEDICARE, BC ==
[2017-06-18] MEDS ORDERED: Nitroglycerin 0.4 MG Tab.SL SL PRN (20:18)
[2017-06-18] MEDS ORDERED: Morphine 4 MG/ML Syringe IVPUSH PRN (20:18)
[2017-06-18] MEDS ORDERED: Aspirin 81 MG Tab.Chew PO ONE (20:20)
[2017-06-18] MEDS ORDERED: LORazepam 1 MG Tab PO ONE (20:21)
[2017-06-18] MEDS ORDERED: Sodium Chloride 0.9% 10 ML Syringe FLUSH PRN (20:21)
--- NOTE | 2017-06-18 20:24 | EDM.PDOC ---
ED HPI GENERAL MEDICAL PROBLEM - General Chief Complaint: Chest Pain Stated Complaint: HEART ATTACK SOB Time Seen by Provider: 06/18/17 20:14 Source of Information: Reports: Patient, Family, Old Records, RN Notes Reviewed History Limitations: Reports: No Limitations - History of Present Illness INITIAL COMMENTS - FREE TEXT/NARRATIVE: 61-year-old gentleman presents to the emergency department today with complaint of chest pain, he states the pain started about 7 hours prior steroid constant nature it's deep pressure sensation in the center of his chest with radiations down the left arm no nausea he does feel short of breath and shortness of breath with exertion does have a cardiac history with stenting one year ago Left Chest Pain Score (Numeric/FACES): 10 - Related Data Allergies Allergy/AdvReac Type Severity Reaction Status Date / Time Cephalosporins Allergy Itching Verified 06/18/17 20:05 Penicillins Allergy Dizziness Verified 06/18/17 20:05 Sulfa (Sulfonamide Allergy Itching Verified 06/18/17 20:05 Antibiotics) vancomycin Allergy Facial Verified 06/18/17 20:05 Swelling Home Meds: Home Meds Calcium Polycarbophil [Fibercon] 1 tab PO QAM 03/04/13 [History] Carvedilol 3.125 mg PO BID 03/04/13 [History] Cranberry Conc/Ascorbic Acid [Cranberry 12,600 mg Softgel] 1 tab PO QAM [History] Furosemide 20 mg PO QAM 03/04/13 [History] Losartan Potassium 12.5 mg PO QPM 03/04/13 [History] Simvastatin 40 mg PO BEDTIME 03/04/13 [History] Vit D3/Folic Acid/B2/B6/B12 [Folgard Tablet] 1 each PO QAM 03/04/13 [History] metFORMIN [Glucophage] 1,000 mg PO BID 03/04/13 [History] Fluticasone Propionate [Flonase] 1 spray NS BID 04/07/13 [History] diphenhydrAMINE [Benadryl] 50 mg PO BEDTIME 01/11/15 [History] Gabapentin [Neurontin] 600 mg PO BID 02/10/15 [History] traZODone 200 mg PO BEDTIME 06/27/15 [History] Clopidogrel [Plavix] 75 mg PO DAILY 08/10/15 [History] Potassium 99 mg PO DAILY 06/10/16 [History] Melatonin 6 mg PO BEDTIME 06/11/16 [History] Acetaminophen [Tylenol] 650 mg PO Q4H PRN #0 tablet 06/16/16 [Rx] Acetaminophen/HYDROcodone [[place] 325-5 MG] 1 - 2 tab PO Q4H PRN #0 tablet [Rx] Insulin Glargine,Hum.Rec.Anlog [[place] Solostar] 20 units SUBCUT BID 06/18/17 [ History] Insulin Lispro [HumaLOG] 15 units SUBCUT TID 06/18/17 [History] Warfarin Sodium [Jantoven] 1 tab PO ASDIRECTED 06/18/17 [History] Warfarin Sodium [Jantoven] 3.75 mg PO ASDIRECTED 06/18/17 [History] Past Medical History HEENT History: Reports: Sinusitis Cardiovascular History: Reports: Bypass, CAD, Heart Valve Replacement, High Cholesterol, Hypertension, [place], Stents Gastrointestinal History: Reports: Cholelithiasis Genitourinary History: Reports: Renal Calculus Endocrine/Metabolic History: Reports: Diabetes, Type II, Obesity/BMI 30+ Dermatologic History: Reports: Psoriasis Other Dermatologic History: infected bug bites - Past Surgical History Cardiovascular Surgical History: Reports: Coronary Artery Bypass, Coronary Artery Stent, Valve Replacement Respiratory Surgical History: Reports: Lung Resection, Thoracotomy GI Surgical History: Reports: Appendectomy, Cholecystectomy Musculoskeletal Surgical History: Reports: Shoulder Surgery, Other (See Below) Other Musculoskeletal Surgeries/Procedures:: rotator cuff on left, spurs removed on right shoulder. Social & Family History - Tobacco Use Smoking Status *Q: Never Smoker Used Tobacco, but Quit: Yes Month/Year Tobacco Last Used: 0 Second Hand Smoke Exposure: No - Caffeine Use Caffeine Use: Reports: Soda - Alcohol Use Days Per Week of Alcohol Use: 0 - Recreational Drug Use Recreational Drug Use: No ED ROS GENERAL - Review of Systems Review Of Systems: See Below Constitutional: Reports: No Symptoms HEENT: Reports: No Symptoms Respiratory: Reports: Shortness of Breath Cardiovascular: Reports: Chest Pain, Dyspnea on Exertion GI/Abdominal: Reports: No Symptoms : Reports: No Symptoms Musculoskeletal: Reports: No Symptoms Skin: Reports: No Symptoms Neurological: Reports: No Symptoms ED EXAM, GENERAL - Physical Exam Exam: See Below Free Text/Narrative:: General: Male, moderate discomfort secondary to pain, alert and oriented x3 HEENT: head is atraumatic normocephalic, eyes pupils equal round reactive to light, sclera clear no conjunctivitis appreciated. Ears tympanic membranes clear and conn landmarks and light reflex are present bilaterally canals are clear. Nose no septal deviation, nares are clear, no blood present. Mouth mucosa is moist and pink no erythema or exudate noted in soft palate, tongue is midline uvula is midline, dentition is intact. Neck: Supple no thyromegaly no tracheal deviation. Nodes: Cervical nodes subclavicular nodes nontender no palpable lymphadenopathy noted. Lungs: clear to auscultation bilaterally with symmetrical respirations, no adventitious noise appreciated. CV: Regular rate and rhythm S1 and S2 appreciated no murmurs rubs or gallops noted. Abdomen: Soft, obese, nontender, no palpable masses or organomegaly appreciated , no distention no guarding bowel sounds are present, . Neuro: Cranial nerves II through XII grossly intact Skin: Warm and dry, intact Extremities: No lower extremity edema appreciated, Course - Vital Signs Last Recorded V/S: Last Vital Signs Temp 97 F 06/18/17 20:02 Pulse 70 06/18/17 21:40 Resp 16 06/18/17 21:40 BP 166/83 H 06/18/17 21:40 Pulse Ox 94 L 06/18/17 21:40 - Orders/Labs/Meds Orders: Active Orders 24 hr Category Date Time Status Cardiac Monitoring [RC] .As Directed Care 06/18/17 20:18 Active EKG Documentation Completion [RC] ASDIRECTED Care 06/18/17 20:20 Active Peripheral IV Care [RC] . DIRECTED Care 06/18/17 20:22 Active Chest 2V [CR] Stat Exams 06/18/17 20:19 Taken Morphine Med 06/18/17 20:18 Active 4 mg IVPUSH Q10M PRN Nitroglycerin [Nitrostat] Med 06/18/17 20:18 Active 0.4 mg SL Q5M PRN Sodium Chloride 0.9% [Saline Flush] Med 06/18/17 20:21 Active 10 ml FLUSH ASDIRECTED PRN Peripheral IV Insertion Adult [OM.PC] Urgent Oth 06/18/17 20:22 Ordered EKG 12 Lead [EK] Stat Ther 06/18/17 20:19 Ordered Medication Orders Morphine Sulfate (Morphine) 4 mg IVPUSH Q10M PRN PRN Reason: Chest Pain Stop: 06/19/17 20:18 Nitroglycerin (Nitrostat) 0.4 mg SL Q5M PRN PRN Reason: Chest Pain Stop: 06/19/17 20:18 Sodium Chloride (Saline Flush) 10 ml FLUSH ASDIRECTED PRN PRN Reason: Keep Vein Open Labs: Laboratory Tests 06/18/17 06/18/17 06/18/17 Range/Units 20:30 20:30 20:30 WBC 5.2 (4.5-11.0) K/uL RBC 5.02 (4.30-5.90) M/uL Hgb 14.3 (12.0-15.0) g/dL Hct 44.4 (40.0-54.0) % MCV 88 (80-98) fL MCH 29 (27-31) pg MCHC 32 (32-36) % Plt Count 179 (150-400) K/uL Neut % (Auto) 60 (36-66) % Lymph % (Auto) 30 (24-44) % [place] % (Auto) 9 H (2-6) % Eos % (Auto) 1 L (2-4) % Baso % (Auto) 0 (0-1) % PT 30.8 H (9.5-12.0) sec INR 2.76 H (0.80-1.20) Sodium 139 L (140-148) mmol/L Potassium 4.0 (3.6-5.2) mmol/L Chloride 101 (100-108) mmol/L Carbon Dioxide 32 (21-32) mmol/L Anion Gap 10.0 (5.0-14.0) mmol/L BUN 19 H (7-18) mg/dL Creatinine 1.2 (0.8-1.3) mg/dL Est Cr Clr Drug Dosing 58.91 mL/min Estimated GFR (MDRD) > 60 (>60) Glucose 101 (74-106) mg/dL Calcium 9.0 (8.5-10.1) mg/dL Total Bilirubin 0.6 (0.2-1.0) mg/dL AST 19 (15-37) U/L ALT 19 (12-78) U/L Alkaline Phosphatase 69 (46-116) U/L Troponin I < 0.017 (0.000-0.056) ng/mL Total Protein 7.4 (6.4-8.2) g/dL Albumin 3.8 (3.4-5.0) g/dL Globulin 3.6 H (2.3-3.5) g/dL Albumin/Globulin Ratio 1.1 L (1.2-2.2) Meds: Medications Generic Name Dose Route Start Last Admin Trade Name Freq PRN Reason Stop Dose Admin Morphine Sulfate 4 mg 06/18/17 20:18 Morphine IVPUSH 06/19/17 20:18 Q10M PRN Chest Pain Nitroglycerin 0.4 mg 06/18/17 20:18 Nitrostat SL 06/19/17 20:18 Q5M PRN Chest Pain Sodium Chloride 10 ml 06/18/17 20:21 Saline Flush FLUSH ASDIRECTED PRN Keep Vein Open Discontinued Medications Generic Name Dose Route Start Last Admin Trade Name Freq PRN Reason Stop Dose Admin Aspirin 324 mg 06/18/17 20:20 06/18/17 20:26 Aspirin PO 06/18/17 20:21 324 mg ONETIME ONE Administration Ketorolac Tromethamine 60 mg 06/18/17 21:11 06/18/17 21:20 Toradol IM 06/18/17 21:12 60 mg ONETIME ONE Administration Lorazepam 1 mg 06/18/17 20:21 06/18/17 20:27 Ativan PO 06/18/17 20:22 1 mg ONETIME ONE Administration Departure - Departure Time of Disposition: 22:34 Disposition: Home, Self-Care 01 Condition: Fair Clinical Impression: Atypical chest pain Referrals: Nilay Patel Sr, MD [Primary Care Provider] - Forms: ED Department Discharge Additional Instructions: please follow-up with your primary care provider next 3-5 days for reevaluation, - My Orders Last 24 Hours: My Active Orders 06/18/17 20:18 Cardiac Monitoring [RC] .As Directed Morphine 4 mg IVPUSH Q10M PRN Nitroglycerin [Nitrostat] 0.4 mg SL Q5M PRN 06/18/17 20:19 Chest 2V [CR] Stat EKG 12 Lead [EK] Stat 06/18/17 20:20 EKG Documentation Completion [RC] ASDIRECTED 06/18/17 20:21 Sodium Chloride 0.9% [Saline Flush] 10 ml FLUSH ASDIRECTED PRN 06/18/17 20:22 Peripheral IV Care [RC] . DIRECTED Peripheral IV Insertion Adult [OM.PC] Urgent - Assessment/Plan Last 24 Hours: My Active Orders 06/18/17 20:18 Cardiac Monitoring [RC] .As Directed Morphine 4 mg IVPUSH Q10M PRN Nitroglycerin [Nitrostat] 0.4 mg SL Q5M PRN 06/18/17 20:19 Chest 2V [CR] Stat EKG 12 Lead [EK] Stat 06/18/17 20:20 EKG Documentation Completion [RC] ASDIRECTED 06/18/17 20:21 Sodium Chloride 0.9% [Saline Flush] 10 ml FLUSH ASDIRECTED PRN 06/18/17 20:22 Peripheral IV Care [RC] . DIRECTED Peripheral IV Insertion Adult [OM.PC] Urgent Plan: Assessment Acuity = acute Site and laterality = atypical chest pain Etiology = probable muscle skeletal Manifestations = none Location of injury = Home Lab values = CBC, CMP, troponin all within normal limits INR 2.73 therapeutic, chest x-ray I did not appreciate any acute process is to be over read by radiology, EKG demonstrates a sinus rhythm similar to EKG in 2017 Plan discharge home will use nonsteroidal anti-inflammatories for the next couple days follow-up with primary care 3-5 days if no improvement This note was dictated using [employer] voice recognition software please call with any questions on syntax or elizabeth.
[2017-06-18] MEDS ORDERED: Ketorolac 60 MG/2 ML SDV IM ONE (21:11)
[2017-06-18 23:06] VITALS: BP 150/77
--- NOTE | 2017-06-21 09:21 | CR ---
Two-view chest Comparison: August 2016. Findings: There has been prior cardiac valve repair. There is chronic pleural thickening bilaterally. There is scarring in the central left lung. There are no acute infiltrates or effusions. Impression: 1. Stable exam. No acute findings.
== END 2017-06-18 23:10 | disposition home or self-care (01) ==
LOC: JP.ED 20:01
DX: R07.89 Other chest pain (principal); I10 Essential (primary) hypertension; E78.00 Pure hypercholesterolemia, unspecified; Z88.2 Allergy status to sulfonamides; Z88.8 Allergy status to other drugs, medicaments and biological substances; Z88.0 Allergy status to penicillin; Z79.899 Other long term (current) drug therapy; Z79.01 Long term (current) use of anticoagulants
CPT/HCPCS: 36415; 71046; 80053; 84484; 85025; 85610; 93005; 96372; 99285; A9270; J1885

== ENCOUNTER 2018-06-25 15:55 | Emergency (ER) | payer MEDICARE, BC ==
[2018-06-25] MEDS ORDERED: Sodium Chloride 0.9% 100 ML IV ONE (18:06)
[2018-06-25] MEDS ORDERED: Sodium Chloride 0.9% 10 ML Syringe FLUSH ONE (18:06)
[2018-06-25] MEDS ORDERED: Iopamidol 755 Mg/ML 100 ML Bottle IV SCH (18:15)
[2018-06-25] MEDS ORDERED: Aspirin 81 MG Tab.Chew PO ONE (19:53)
--- NOTE | 2018-06-25 19:58 | EDM.PDOC ---
ED HPI GENERAL MEDICAL PROBLEM - General Chief Complaint: Cardiovascular Problem Stated Complaint: STOMACH PAIN Time Seen by Provider: 06/25/18 17:51 Source of Information: Reports: Patient History Limitations: Reports: No Limitations - History of Present Illness INITIAL COMMENTS - FREE TEXT/NARRATIVE: 62 yo with hx of CAD s/p CAB and stent placement who presents with concerns of chest pain Started two days ago Has been intermittent, not necessarily exertional but accompanied by worsening SOB Pain is primarily in the epigastrium, does not radiate, sharp and seems worse with inspiration No changes in stools No LE swelling or pain On coumadin Feels diffierent that his typical angina however has mistaken GI upset for NE in the past before his CAB No fevers No cough Upper Abdominal Pain Score (Numeric/FACES): 7 - Related Data Allergies Allergy/AdvReac Type Severity Reaction Status Date / Time Cephalosporins Allergy Itching Verified 06/25/18 16:18 Penicillins Allergy Dizziness Verified 06/25/18 16:18 Sulfa (Sulfonamide Allergy Itching Verified 06/25/18 16:18 Antibiotics) vancomycin Allergy Facial Verified 06/25/18 16:18 Swelling Home Meds: Home Meds Calcium Polycarbophil [Fibercon] 1 tab PO QAM 03/04/13 [History] Carvedilol 3.125 mg PO BID 03/04/13 [History] Cranberry Conc/Ascorbic Acid [Cranberry 12,600 mg Softgel] 1 tab PO QAM [History] Furosemide 20 mg PO QAM 03/04/13 [History] Losartan Potassium 25 mg PO QPM 03/04/13 [History] Simvastatin 40 mg PO BEDTIME 03/04/13 [History] Vit D3/Folic Acid/B2/B6/B12 [Folgard Tablet] 1 each PO QAM 03/04/13 [History] metFORMIN [Glucophage] 1,000 mg PO BID 03/04/13 [History] Fluticasone Propionate [Flonase] 1 spray NS BID 04/07/13 [History] Gabapentin [Neurontin] 600 mg PO TID 02/10/15 [History] traZODone 200 mg PO BEDTIME 06/27/15 [History] Potassium 99 mg PO DAILY 06/10/16 [History] Melatonin 6 mg PO BEDTIME 06/11/16 [History] Acetaminophen [Tylenol] 650 mg PO Q4H PRN #0 tablet 06/16/16 [Rx] Insulin Glargine,Hum.Rec.Anlog [Toujeo Solostar] 15 units SUBCUT BID 06/18/17 [ History] Insulin Lispro [HumaLOG] 15 units SUBCUT ASDIRECTED 06/18/17 [History] Warfarin Sodium [Jantoven] 1 tab PO ASDIRECTED 06/18/17 [History] Hydrocodone/Acetaminophen [Hydrocodon-Acetaminophen 5-325] 1 tab PO TID PRN [History] Past Medical History HEENT History: Reports: Impaired Vision, Sinusitis Other HEENT History: legally blind left eye and 20\80 right eye Cardiovascular History: Reports: Bypass, CAD, Heart Valve Replacement, High Cholesterol, Hypertension, NE, Stents Respiratory History: Reports: None Gastrointestinal History: Reports: Cholelithiasis Genitourinary History: Reports: Renal Calculus Musculoskeletal History: Reports: None, Back Pain, Chronic Neurological History: Reports: Seizure Endocrine/Metabolic History: Reports: Diabetes, Type II, Obesity/BMI 30+ Hematologic History: Reports: Anticoagulation Therapy, Blood Transfusion(s) Dermatologic History: Reports: Psoriasis Other Dermatologic History: infected bug bites - Infectious Disease History Infectious Disease History: Reports: Mumps - Past Surgical History Head Surgeries/Procedures: Reports: None HEENT Surgical History: Reports: Cataract Surgery, Eye Surgery, LASIK Cardiovascular Surgical History: Reports: Coronary Artery Bypass, Coronary Artery Stent, Valve Replacement Respiratory Surgical History: Reports: Lung Resection, Thoracotomy GI Surgical History: Reports: Appendectomy, Cholecystectomy Male Surgical History: Reports: None Endocrine Surgical History: Reports: None Neurological Surgical History: Reports: None Musculoskeletal Surgical History: Reports: Shoulder Surgery, Other (See Below) Other Musculoskeletal Surgeries/Procedures:: rotator cuff on left, spurs removed on right shoulder. Dermatological Surgical History: Reports: None Social & Family History - Tobacco Use Smoking Status *Q: Never Smoker Second Hand Smoke Exposure: No - Caffeine Use Caffeine Use: Reports: Coffee - Recreational Drug Use Recreational Drug Use: No ED ROS GENERAL - Review of Systems Review Of Systems: See Below Constitutional: Reports: No Symptoms HEENT: Reports: No Symptoms Respiratory: Reports: Shortness of Breath Cardiovascular: Reports: Chest Pain Endocrine: Reports: No Symptoms GI/Abdominal: Reports: No Symptoms : Reports: No Symptoms Musculoskeletal: Reports: No Symptoms Skin: Reports: No Symptoms Neurological: Reports: No Symptoms Psychiatric: Reports: No Symptoms Hematologic/Lymphatic: Reports: No Symptoms Immunologic: Reports: No Symptoms ED EXAM, GENERAL - Physical Exam Exam: See Below Exam Limited By: No Limitations General Appearance: Alert, No Apparent Distress Nose: Normal Inspection Throat/Mouth: Normal Inspection Head: Atraumatic, Normocephalic Respiratory/Chest: No Respiratory Distress, Lungs Clear Cardiovascular: Regular Rate, Rhythm GI/Abdominal: Soft, Non-Tender Extremities: Normal Inspection, Non-Tender, No Pedal Edema Neurological: Alert, Oriented Psychiatric: Normal Affect, Normal Mood Skin Exam: Warm, Dry EKG INTERPRETATION Rhythm: NSR [place]: Normal P-Wave: Present QRS: Normal ST-T: Depressed (new anterior T wave depressions) Course - Vital Signs Last Recorded V/S: Last Vital Signs Temp 36.0 C 06/25/18 16:25 Pulse 76 06/25/18 18:51 Resp 9 L 06/25/18 18:51 BP 140/75 06/25/18 18:51 Pulse Ox 95 06/25/18 18:51 - Orders/Labs/Meds Orders: Active Orders 24 hr Category Date Time Status EKG Documentation Completion [RC] ASDIRECTED Care 06/25/18 18:01 Active Ang Chest [CT] Stat Exams 06/25/18 18:02 Taken Iopamidol [Isovue-370 (76%)] Med 06/25/18 18:15 Active 100 ml IV . DIRECTED EKG 12 Lead [EK] Routine Ther 06/25/18 18:01 Ordered Medication Orders Iopamidol (Isovue-370 (76%)) 100 ml IV . DIRECTED [facility] Last Admin: 06/25/18 19:21 Dose: 78 ml Labs: Laboratory Tests 06/25/18 06/25/18 06/25/18 Range/Units 18:16 18:16 18:16 WBC 7.6 (4.5-11.0) K/uL RBC 5.64 (4.30-5.90) M/uL Hgb 14.6 (12.0-15.0) g/dL Hct 50.2 (40.0-54.0) % MCV 89 (80-98) fL MCH 26 L (27-31) pg MCHC 29 L (32-36) % Plt Count 227 (150-400) K/uL PT 60.4 H (9.5-12.0) sec INR 6.08 H* D (0.80-1.20) Sodium 135 L (140-148) mmol/L Potassium 5.0 (3.6-5.2) mmol/L Chloride 97 L (100-108) mmol/L Carbon Dioxide 32 (21-32) mmol/L Anion Gap 11.0 (5.0-14.0) mmol/L BUN 28 H (7-18) mg/dL Creatinine 1.4 H (0.8-1.3) mg/dL Est Cr Clr Drug Dosing 49.84 mL/min Estimated GFR (MDRD) 51 L (>60) Glucose 141 H (74-106) mg/dL Calcium 9.3 (8.5-10.1) mg/dL Total Bilirubin 1.0 D (0.2-1.0) mg/dL AST 21 (15-37) U/L ALT 18 (12-78) U/L Alkaline Phosphatase 91 (46-116) U/L Troponin I 0.232 H* (0.000-0.056) ng/mL Total Protein 8.1 (6.4-8.2) g/dL Albumin 3.7 (3.4-5.0) g/dL Globulin 4.4 H (2.3-3.5) g/dL Albumin/Globulin Ratio 0.8 L (1.2-2.2) Meds: Medications Generic Name Dose Route Start Last Admin Trade Name Freq PRN Reason Stop Dose Admin Iopamidol 100 ml 06/25/18 18:15 06/25/18 19:21 Isovue-370 (76%) IV 78 ml . DIRECTED [facility] Administration Discontinued Medications Generic Name Dose Route Start Last Admin Trade Name Freq PRN Reason Stop Dose Admin Sodium Chloride 100 mls @ 3.5 mls/sec 06/25/18 18:06 06/25/18 19:21 Normal Saline IV 06/25/18 18:07 4 mls/sec ONETIME ONE Administration Sodium Chloride 10 ml 06/25/18 18:06 06/25/18 19:21 Saline Flush FLUSH 06/25/18 18:07 10 ml ONETIME ONE Administration - Re-Assessments/Exams Free Text/Narrative Re-Assessment/Exam: 62 yo presents with concerns of chest pain, extensive hx of cardiac dz including CAB and stenting On exam noted to be hypoxic, no other significant findings EKG with new anterior t wave inversions Labs notable for elevated trop and INR 6 (on coumadin) Given hypoxia elected to perform CTA for PE depsite supra-therapeutic INR, unremarkable for PE on my read for clot burden significant enough to cause submassive PE Findings concerning for NSTEMI, holding heparin given supratherapeutic INR ASA administered Transferred to [place] for cardiology consultation 06/25/18 19:59 Departure - Departure Time of Disposition: 20:02 Disposition: DC/Tfer to Acute Hospital 02 Reason for Transfer *Q: Primary PCI Indicated Clinical Impression: NSTEMI (non-ST elevated myocardial infarction) Referrals: Nilay Patel Sr, MD [Primary Care Provider] - - My Orders Last 24 Hours: My Active Orders 06/25/18 18:01 EKG Documentation Completion [RC] ASDIRECTED EKG 12 Lead [EK] Routine 06/25/18 18:02 Ang Chest [CT] Stat 06/25/18 18:15 Iopamidol [Isovue-370 (76%)] 100 ml IV . DIRECTED - Assessment/Plan Last 24 Hours: My Active Orders 06/25/18 18:01 EKG Documentation Completion [RC] ASDIRECTED EKG 12 Lead [EK] Routine 06/25/18 18:02 Ang Chest [CT] Stat 06/25/18 18:15 Iopamidol [Isovue-370 (76%)] 100 ml IV . DIRECTED
--- NOTE | 2018-06-25 20:03 | CRLCT ---
TECHNIQUE: IV contrast-enhanced chest CT pulmonary embolism protocol. 78 mL Isovue-370 injected. INDICATIONS: Chest pain, concern for PE. COMPARISON: None. FINDINGS: No pulmonary emboli. Incomplete inspiration. There are bilateral pleural plaques consistent with prior asbestos exposure. Tiny bilateral pleural effusions. Areas of atelectasis and scarring in both mid and lower lungs. 3.8 cm area of focal consolidation in the posterior right lower lobe associated with volume loss and pleural tail, consistent with round atelectasis. Early honeycombing in the posterior left lower lobe. There is diffuse left lung volume loss. No definite acute focal infiltrates. Sternotomy with aortic valve replacement and CABG. No adenopathy. Mild cardiac enlargement. IMPRESSION: 1. No pulmonary emboli. 2. Asbestos related pleural and parenchymal disease. 3. No definite acute findings. Dictated by Cortes Farrell MD @ 06/25/2018 8:02:33 PM Dictated by: Cortes Farrell MD @ 06/25/2018 20:02:43 (Electronically Signed)
[2018-06-25 20:32] VITALS: BP 142/67
== END 2018-06-25 21:00 ==
LOC: JP.ED 15:55
DX: I21.4 Non-ST elevation (NSTEMI) myocardial infarction (principal); I25.10 Atherosclerotic heart disease of native coronary artery without angina pectoris; E78.00 Pure hypercholesterolemia, unspecified; E11.9 Type 2 diabetes mellitus without complications; Z79.01 Long term (current) use of anticoagulants; Z95.1 Presence of aortocoronary bypass graft; Z88.1 Allergy status to other antibiotic agents; Z88.0 Allergy status to penicillin; Z88.2 Allergy status to sulfonamides; Z79.4 Long term (current) use of insulin; Z79.899 Other long term (current) drug therapy
CPT/HCPCS: 36415; 71275; 80053; 84484; 85027; 85610; 93005; 99285; A9270; J7030; Q9967

== ENCOUNTER 2018-10-28 14:35 | Emergency (ER) | payer BC, MEDICARE, OTHER ==
[2018-10-28 14:54] VITALS: BP 135/61; PULSE 67
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
== END 2018-10-28 16:25 | disposition home or self-care (01) ==
LOC: JP.ED 14:35
DX: S80.02XA Contusion of left knee, initial encounter (principal); I25.2 Old myocardial infarction; I25.10 Atherosclerotic heart disease of native coronary artery without angina pectoris; I10 Essential (primary) hypertension; E11.9 Type 2 diabetes mellitus without complications; E66.9 Obesity, unspecified; Z95.5 Presence of coronary angioplasty implant and graft; Z95.1 Presence of aortocoronary bypass graft; Z90.49 Acquired absence of other specified parts of digestive tract; Z98.49 Cataract extraction status, unspecified eye; Z79.4 Long term (current) use of insulin; Z79.82 Long term (current) use of aspirin; Z88.1 Allergy status to other antibiotic agents; Z88.2 Allergy status to sulfonamides; Z88.0 Allergy status to penicillin; V09.9XXA Pedestrian injured in unspecified transport accident, initial encounter
CPT/HCPCS: 73562-LT; 99283-25

== ENCOUNTER 2019-02-07 10:21 | Emergency (ER) | payer MEDICARE, BC ==
[2019-02-07 11:07] VITALS: PULSE 87
[2019-02-07] MEDS ORDERED: Sodium Chloride 0.9% 10 ML Syringe FLUSH PRN (11:43)
--- NOTE | 2019-02-07 11:46 | EDM.PDOC ---
ED HPI GENERAL MEDICAL PROBLEM - General Chief Complaint: Respiratory Problem Stated Complaint: SOB Time Seen by Provider: 02/07/19 11:44 Source of Information: Reports: Patient History Limitations: Reports: No Limitations - History of Present Illness INITIAL COMMENTS - FREE TEXT/NARRATIVE: pt has a history of chf. He has been very sob last 2 days. Particularly today. He was very labored and he did turn up his o2 this am. Onset: Today, Sudden Duration: Hour(s): Location: Reports: Chest, Generalized Associated Symptoms: Reports: Cough, Shortness of Breath, Other ( raising sputum ) Lower Chest Pain Score (Numeric/FACES): 7 - Related Data Allergies Allergy/AdvReac Type Severity Reaction Status Date / Time Cephalosporins Allergy Itching Verified 02/07/19 11:02 Penicillins Allergy Dizziness Verified 02/07/19 11:02 Sulfa (Sulfonamide Allergy Itching Verified 02/07/19 11:02 Antibiotics) vancomycin Allergy Facial Verified 02/07/19 11:02 Swelling Home Meds: Home Meds Calcium Polycarbophil [Fibercon] 1 tab PO QAM 03/04/13 [History] Carvedilol 3.125 mg PO DAILY 03/04/13 [History] Cranberry Conc/Ascorbic Acid [Cranberry 12,600 mg Softgel] 1 tab PO QAM [History] Furosemide 20 mg PO QAM 03/04/13 [History] Losartan Potassium 12.5 mg PO QPM 03/04/13 [History] Simvastatin 40 mg PO BEDTIME 03/04/13 [History] Vit D3/Folic Acid/B2/B6/B12 [Folgard Tablet] 1 each PO QAM 03/04/13 [History] metFORMIN [Glucophage] 1,000 mg PO BID 03/04/13 [History] Fluticasone Propionate [Flonase] 1 spray NS BID 04/07/13 [History] Gabapentin [Neurontin] 600 mg PO TID 02/10/15 [History] traZODone 200 mg PO BEDTIME 06/27/15 [History] Melatonin 6 mg PO BEDTIME 06/11/16 [History] Acetaminophen [Tylenol] 650 mg PO Q4H PRN #0 tablet 06/16/16 [Rx] Insulin Glargine,Hum.Rec.Anlog [Kyra Reaves] 15 units SUBCUT BID 06/18/17 [ History] Insulin Lispro [HumaLOG] 15 units SUBCUT TIDMEALS 06/18/17 [History] Warfarin Sodium [Jantoven] 1 tab PO ASDIRECTED 06/18/17 [History] Hydrocodone/Acetaminophen [Hydrocodon-Acetaminophen 5-325] 1 tab PO TID PRN [History] Past Medical History HEENT History: Reports: Impaired Vision, Sinusitis Other HEENT History: legally blind left eye and 20\80 right eye Cardiovascular History: Reports: Bypass, CAD, Heart Valve Replacement, High Cholesterol, Hypertension, GA, Stents Respiratory History: Reports: Pneumonia, Recurrent, Other (See Below) Other Respiratory History: home O2 as needed. Gastrointestinal History: Reports: Cholelithiasis Genitourinary History: Reports: Renal Calculus Musculoskeletal History: Reports: Back Pain, Chronic Neurological History: Reports: Seizure Endocrine/Metabolic History: Reports: Diabetes, Type II, Obesity/BMI 30+ Hematologic History: Reports: Anticoagulation Therapy, Blood Transfusion(s) Dermatologic History: Reports: Psoriasis Other Dermatologic History: infected bug bites - Infectious Disease History Infectious Disease History: Reports: Mumps - Past Surgical History Head Surgeries/Procedures: Reports: None HEENT Surgical History: Reports: Cataract Surgery, Eye Surgery, LASIK Cardiovascular Surgical History: Reports: Coronary Artery Bypass, Coronary Artery Stent, Valve Replacement Respiratory Surgical History: Reports: Lung Resection, Thoracotomy GI Surgical History: Reports: Appendectomy, Cholecystectomy Musculoskeletal Surgical History: Reports: Shoulder Surgery, Other (See Below) Other Musculoskeletal Surgeries/Procedures:: rotator cuff on left, spurs removed on right shoulder. Social & Family History - Tobacco Use Smoking Status *Q: Never Smoker - Caffeine Use Caffeine Use: Reports: Soda - Recreational Drug Use Recreational Drug Use: No ED ROS GENERAL - Review of Systems Review Of Systems: See Below Constitutional: Reports: No Symptoms HEENT: Reports: No Symptoms Respiratory: Reports: Shortness of Breath, Cough, Other (pt hs been raising coloredsputum, no fever. ) Cardiovascular: Reports: No Symptoms Endocrine: Reports: No Symptoms GI/Abdominal: Reports: No Symptoms : Reports: No Symptoms Musculoskeletal: Reports: No Symptoms Skin: Reports: No Symptoms Neurological: Reports: No Symptoms Psychiatric: Reports: Anxiety ED EXAM, GENERAL - Physical Exam Exam: See Below Free Text/Narrative:: pt arrived with a history of increased Exam Limited By: Other (pt is very sob.) General Appearance: Alert, Anxious, Moderate Distress Ears: Normal TMs Nose: Normal Inspection Throat/Mouth: Normal Inspection Head: Atraumatic Neck: Normal Inspection Respiratory/Chest: Decreased Breath Sounds, Crackles Cardiovascular: Regular Rate, Rhythm, Other (pt has not had chest pain. Pt has the typical aortic valvular sound. ) GI/Abdominal: Soft, Non-Tender (Male) Exam: Deferred Rectal (Males) Exam: Deferred Back Exam: Normal Inspection Extremities: Other (mild edema. ) Neurological: Alert, Oriented, Normal Cognition Course - Vital Signs Last Recorded V/S: Last Vital Signs Temp 36.5 C 02/07/19 11:06 Pulse 87 02/07/19 11:30 Resp 29 H 02/07/19 13:30 BP 149/71 H 02/07/19 13:30 Pulse Ox 93 L 02/07/19 13:30 - Orders/Labs/Meds Orders: Active Orders 24 hr Category Date Time Status EKG Documentation Completion [RC] ASDIRECTED Care 02/07/19 12:41 Active Saline Lock Insert [OM.PC] Routine Oth 02/07/19 11:43 Ordered EKG 12 Lead [EK] Routine Ther 02/07/19 12:41 Ordered Labs: Laboratory Tests 02/07/19 02/07/19 02/07/19 Range/Units 11:42 11:58 11:58 WBC (4.5-11.0) K/uL RBC (4.30-5.90) M/uL Hgb (12.0-15.0) g/dL Hct (40.0-54.0) % MCV (80-98) fL MCH (27-31) pg MCHC (32-36) % Plt Count (150-400) K/uL Neut % (Auto) (36-66) % Lymph % (Auto) (24-44) % Stonewall % (Auto) (2-6) % Eos % (Auto) (2-4) % Baso % (Auto) (0-1) % PT (9.5-12.0) sec INR (0.80-1.20) Puncture Site Rt brachial ABG pH 7.369 (7.350-7.450) ABG pCO2 54.8 H (35.0-42.0) mmHg ABG pO2 64.4 L (75.0-100.0) mmHg ABG HCO3 30.8 H (22.0-26.0) mmol/L ABG Total CO2 27.3 H (23.0-27.0) mmol/L ABG O2 Saturation 91.2 L (95.0-98.0) % ABG O2 Content 17.9 (15.0-23.0) %vol ABG Base Excess 4.5 mm/L ABG Hemoglobin 14.3 (13.5-18.0) g/dL ABG Oxyhemoglobin 88.9 % ABG Carboxyhemoglobin 1.7 H (0.0-1.6) % ABG Methemoglobin 0.8 % Chuck Test Not performed O2 Delivery Device Nasal cannula Oxygen Flow Rate 3 L Sodium (140-148) mmol/L Potassium (3.6-5.2) mmol/L Chloride (100-108) mmol/L Carbon Dioxide (21-32) mmol/L Anion Gap (5.0-14.0) mmol/L BUN (7-18) mg/dL Creatinine (0.8-1.3) mg/dL Est Cr Clr Drug Dosing mL/min Estimated GFR (MDRD) (>60) Glucose (74-106) mg/dL Calcium (8.5-10.1) mg/dL Total Bilirubin (0.2-1.0) mg/dL AST (15-37) U/L ALT (12-78) U/L Alkaline Phosphatase (46-116) U/L Troponin I 1.119 H* (0.000-0.056) ng/mL NT-Pro-B Natriuret Pep 759 H (5-125) pg/mL Total Protein (6.4-8.2) g/dL Albumin (3.4-5.0) g/dL Globulin (2.3-3.5) g/dL Albumin/Globulin Ratio (1.2-2.2) Urine Color (YELLOW) Urine Appearance (CLEAR) Urine pH (5.0-8.0) Ur Specific Dixon (1.008-1.030) Urine Protein (NEGATIVE) mg/dL Urine Glucose (UA) (NEGATIVE) mg/dL Urine Ketones (NEGATIVE) mg/dL Urine Occult Blood (NEGATIVE) Urine Nitrite (NEGATIVE) Urine Bilirubin (NEGATIVE) Urine Urobilinogen (0.2-1.0) EU/dL Ur Leukocyte Esterase (NEGATIVE) Urine RBC (0-5) Urine WBC (0-5) Ur Epithelial Cells Amorphous Sediment Urine Bacteria Urine Mucus 02/07/19 02/07/19 02/07/19 Range/Units 11:58 11:58 12:44 WBC 10.2 (4.5-11.0) K/uL RBC 5.09 (4.30-5.90) M/uL Hgb 14.7 (12.0-15.0) g/dL Hct 46.9 (40.0-54.0) % MCV 92 (80-98) fL MCH 29 (27-31) pg MCHC 31 L (32-36) % Plt Count 206 (150-400) K/uL Neut % (Auto) 88 H (36-66) % Lymph % (Auto) 6 L (24-44) % Stonewall % (Auto) 7 H (2-6) % Eos % (Auto) 0 L (2-4) % Baso % (Auto) 0 (0-1) % PT 31.0 H (9.5-12.0) sec INR 3.06 H D (0.80-1.20) Puncture Site ABG pH (7.350-7.450) ABG pCO2 (35.0-42.0) mmHg ABG pO2 (75.0-100.0) mmHg ABG HCO3 (22.0-26.0) mmol/L ABG Total CO2 (23.0-27.0) mmol/L ABG O2 Saturation (95.0-98.0) % ABG O2 Content (15.0-23.0) %vol ABG Base Excess mm/L ABG Hemoglobin (13.5-18.0) g/dL ABG Oxyhemoglobin % ABG Carboxyhemoglobin (0.0-1.6) % ABG Methemoglobin % Chuck Test O2 Delivery Device Oxygen Flow Rate L Sodium 138 L (140-148) mmol/L Potassium 5.1 (3.6-5.2) mmol/L Chloride 99 L (100-108) mmol/L Carbon Dioxide 34 H (21-32) mmol/L Anion Gap 10.1 (5.0-14.0) mmol/L BUN 20 H (7-18) mg/dL Creatinine 1.1 (0.8-1.3) mg/dL Est Cr Clr Drug Dosing 62.59 mL/min Estimated GFR (MDRD) > 60 (>60) Glucose 161 H (74-106) mg/dL Calcium 9.4 (8.5-10.1) mg/dL Total Bilirubin 1.1 H (0.2-1.0) mg/dL AST 25 (15-37) U/L ALT 13 (12-78) U/L Alkaline Phosphatase 90 (46-116) U/L Troponin I (0.000-0.056) ng/mL NT-Pro-B Natriuret Pep (5-125) pg/mL Total Protein 7.9 (6.4-8.2) g/dL Albumin 3.7 (3.4-5.0) g/dL Globulin 4.2 H (2.3-3.5) g/dL Albumin/Globulin Ratio 0.9 L (1.2-2.2) Urine Color (YELLOW) Urine Appearance (CLEAR) Urine pH (5.0-8.0) Ur Specific Dixon (1.008-1.030) Urine Protein (NEGATIVE) mg/dL Urine Glucose (UA) (NEGATIVE) mg/dL Urine Ketones (NEGATIVE) mg/dL Urine Occult Blood (NEGATIVE) Urine Nitrite (NEGATIVE) Urine Bilirubin (NEGATIVE) Urine Urobilinogen (0.2-1.0) EU/dL Ur Leukocyte Esterase (NEGATIVE) Urine RBC (0-5) Urine WBC (0-5) Ur Epithelial Cells Amorphous Sediment Urine Bacteria Urine Mucus 02/07/19 Range/Units 13:14 WBC (4.5-11.0) K/uL RBC (4.30-5.90) M/uL Hgb (12.0-15.0) g/dL Hct (40.0-54.0) % MCV (80-98) fL MCH (27-31) pg MCHC (32-36) % Plt Count (150-400) K/uL Neut % (Auto) (36-66) % Lymph % (Auto) (24-44) % Stonewall % (Auto) (2-6) % Eos % (Auto) (2-4) % Baso % (Auto) (0-1) % PT (9.5-12.0) sec INR (0.80-1.20) Puncture Site ABG pH (7.350-7.450) ABG pCO2 (35.0-42.0) mmHg ABG pO2 (75.0-100.0) mmHg ABG HCO3 (22.0-26.0) mmol/L ABG Total CO2 (23.0-27.0) mmol/L ABG O2 Saturation (95.0-98.0) % ABG O2 Content (15.0-23.0) %vol ABG Base Excess mm/L ABG Hemoglobin (13.5-18.0) g/dL ABG Oxyhemoglobin % ABG Carboxyhemoglobin (0.0-1.6) % ABG Methemoglobin % Chuck Test O2 Delivery Device Oxygen Flow Rate L Sodium (140-148) mmol/L Potassium (3.6-5.2) mmol/L Chloride (100-108) mmol/L Carbon Dioxide (21-32) mmol/L Anion Gap (5.0-14.0) mmol/L BUN (7-18) mg/dL Creatinine (0.8-1.3) mg/dL Est Cr Clr Drug Dosing mL/min Estimated GFR (MDRD) (>60) Glucose (74-106) mg/dL Calcium (8.5-10.1) mg/dL Total Bilirubin (0.2-1.0) mg/dL AST (15-37) U/L ALT (12-78) U/L Alkaline Phosphatase (46-116) U/L Troponin I (0.000-0.056) ng/mL NT-Pro-B Natriuret Pep (5-125) pg/mL Total Protein (6.4-8.2) g/dL Albumin (3.4-5.0) g/dL Globulin (2.3-3.5) g/dL Albumin/Globulin Ratio (1.2-2.2) Urine Color Yellow (YELLOW) Urine Appearance Clear (CLEAR) Urine pH 6.0 (5.0-8.0) Ur Specific Dixon 1.015 (1.008-1.030) Urine Protein Trace H (NEGATIVE) mg/dL Urine Glucose (UA) Negative (NEGATIVE) mg/dL Urine Ketones 15 H (NEGATIVE) mg/dL Urine Occult Blood Trace-lysed H (NEGATIVE) Urine Nitrite Negative (NEGATIVE) Urine Bilirubin Negative (NEGATIVE) Urine Urobilinogen 1.0 (0.2-1.0) EU/dL Ur Leukocyte Esterase Negative (NEGATIVE) Urine RBC 0-5 (0-5) Urine WBC 0-5 (0-5) Ur Epithelial Cells Few Amorphous Sediment Not seen Urine Bacteria Few Urine Mucus Not seen Meds: Medications Discontinued Medications Generic Name Dose Route Start Last Admin Trade Name Freq PRN Reason Stop Dose Admin Furosemide 60 mg 02/07/19 12:24 02/07/19 12:45 Lasix IVPUSH 02/07/19 12:25 60 mg ONETIME ONE Administration Sodium Chloride 10 ml 02/07/19 11:43 02/07/19 12:45 Saline Flush FLUSH 10 ml ASDIRECTED PRN Administration Keep Vein Open - Re-Assessments/Exams Free Text/Narrative Re-Assessment/Exam: 02/07/19 12:49 chest xray shows a sig chf. He has a normal wbc and no temp. He was given lasix 60mg iv. He is doing ok with o2 at 3 liters. His bnp is 700 and greater His trop is greater than 1. He has been accepted at [facility]. Departure - Departure Time of Disposition: 12:51 Disposition: DC/Tfer to Acute Hospital 02 Condition: Fair Clinical Impression: CHF (congestive heart failure), Aortic valve disease, History of Coumadin therapy - Discharge Information Referrals: Nilay Patel Sr, MD [Primary Care Provider] - Forms: ED Department Discharge Care Plan Goals: transfer to [facility]. - My Orders Last 24 Hours: My Active Orders 02/07/19 11:43 Saline Lock Insert [OM.PC] Routine 02/07/19 12:41 EKG Documentation Completion [RC] ASDIRECTED EKG 12 Lead [EK] Routine - Assessment/Plan Last 24 Hours: My Active Orders 02/07/19 11:43 Saline Lock Insert [OM.PC] Routine 02/07/19 12:41 EKG Documentation Completion [RC] ASDIRECTED EKG 12 Lead [EK] Routine
[2019-02-07] MEDS ORDERED: Furosemide 40 MG/4 ML VIAL IVPUSH ONE (12:24)
--- NOTE | 2019-02-07 13:03 | CRLCR ---
INDICATION: Shortness of breath. COMPARISON: 06/29/2018. FINDINGS/IMPRESSION: No significant change in pleural thickening in the lateral mid and lower chest bilaterally. Stable probable basilar fibrotic changes. No acute pulmonary infiltrates or other acute intrathoracic findings. Normal heart size. Status post sternotomy and cardiac valve replacement, as before. Spinal degenerative changes. No acute osseous findings. Dictated by Antony Parham MD @ 02/07/2019 1:00:02 PM Dictated by: Antony Parham MD @ 02/07/2019 13:00:22 (Electronically Signed)
[2019-02-07 13:38] VITALS: BP 149/71
== END 2019-02-07 13:38 ==
LOC: JP.ED 10:21
DX: I11.0 Hypertensive heart disease with heart failure (principal); I50.9 Heart failure, unspecified; I35.9 Nonrheumatic aortic valve disorder, unspecified; E66.9 Obesity, unspecified; I25.2 Old myocardial infarction; I25.10 Atherosclerotic heart disease of native coronary artery without angina pectoris; E11.9 Type 2 diabetes mellitus without complications; Z95.5 Presence of coronary angioplasty implant and graft; Z79.01 Long term (current) use of anticoagulants; Z79.4 Long term (current) use of insulin; Z88.1 Allergy status to other antibiotic agents; Z88.0 Allergy status to penicillin; Z88.2 Allergy status to sulfonamides; Z68.34 Body mass index [BMI] 34.0-34.9, adult
CPT/HCPCS: 36415; 36600; 71045; 80053; 81001; 82803; 83880; 84484; 85025; 85610; 93005; 96374; 99285-25; J1940